=== PATIENT | female | born 1960 | race Caucasian/White ===

== ENCOUNTER 2019-06-03 19:37 | Emergency (ER) | payer BC, OTHER ==
[2019-06-03 19:49] VITALS: BP 131/92; PULSE 96; BMI 30.2
[2019-06-03] MEDS ORDERED: ACETAMINOPHEN 325 MG TABLET (FP) ONE (19:57)
[2019-06-03] MEDS ORDERED: ACETAMINOPHEN 325 MG TABLET (FP) PO ONE (20:04)
[2019-06-03 20:10] LABS: BASO % 0.3 % (0-2.0); EOS % 0.9 % (0-4.5); HEMATOCRIT 42.5 % (32.4-45.2); HEMOGLOBIN 14.1 GM/dl (10.7-15.3); LYMPH % 11.3 % (8-40); MCHC 33.1 g/dl (32.0-36.0); MEAN CELL VOLUME 90.7 fl (80-96); MEAN PLT VOLUME 9.6 fl (7.5-11.1); MONO % 3.9 % (3.8-10.2); NEUT % 83.6 % (42.8-82.8); PLATELET COUNT 187 K/MM3 (134-434); RBC 4.69 M/mm3 (3.60-5.2); WHITE BLOOD COUNT 8.1 K/mm3 (4.0-10.8)
[2019-06-03 20:22] LABS: ALBUMIN 4.1 g/dl (3.4-5.0); BILIRUBIN,TOTAL 0.9 mg/dl (0.2-1); CALCIUM 9.1 mg/dl (8.5-10); CREATININE 0.7 mg/dl (0.55-1.3); POTASSIUM 4.1 mmol/L (3.5-5.1); TOT PROT 7.2 g/dl (6.4-8.2)
[2019-06-03 20:25] VITALS: TEMP 99.2
[2019-06-03] MEDS ORDERED: CEFOXITIN SODIUM 1 GM in DEXTROSE 5%-WATER - 100 ML IVPB ONE (22:18)
--- NOTE | 2019-06-04 06:12 | PDOC ---
Documentation entered by Dimas Brewer SCRIBE, acting as scribe for Geovany Elder MD. Geovany Elder MD: This documentation has been prepared by the Daniella farooq Xhesika, SCRIBE, under my direction and personally reviewed by me in its entirety. I confirm that the documentation accurately reflects all work, treatment, procedures, and medical decision making performed by me. History of Present Illness - General Chief Complaint: Pain Stated Complaint: ABD PAIN History Source: Patient Exam Limitations: No Limitations - History of Present Illness Initial Comments: 06/03/19 19:48 The patient is a 58 year old female, with a significant PMH of Anemia (GERD related), laryngeal reflux disease, gastritis, chronic constipation, and hemorrhoids who presents to the emergency department with 1 day of abdominal pain. The patient states she came back from [place] last night, went to bed and woke up in the middle of the night with LLQ pain that felt like constipation. The patient she took Colace last night and 1 dose of Augmentin this afternoon with minimal relief. The patient states she feels constipated and drank small amounts of fluid.The patient notes she has experienced similar pain in the past where she had a colonoscopy done and it showed diverticulitis. Allergies: metronidazole Surgical surgery: abdominal hysterectomy in 200606/04/19 06:11 Past History - Past Medical History Allergies/Adverse Reactions: Allergies Allergy/AdvReac Type Severity Reaction Status Date / Time metronidazole [From Flagyl] Allergy Verified 06/03/19 19:38 Home Medications: Ambulatory Orders Zolpidem Tartrate [Ambien] 6.5 mg PO HS PRN 02/20/15 Butalb/Acetaminophen/Caffeine [Fioricet 50-300-40 mg Capsule] 1 each PO PRN PRN 05/05/15 Pantoprazole Sodium [Protonix -] 40 mg PO DAILY 06/03/19 Polyethylene Glycol 3350 [Miralax (For Daily Use) -] 17 gm PO DAILY 06/03/19 Sennosides/Docusate Sodium [Senokot-S Tablet] 1 each PO ASDIR 06/03/19 Anemia: Yes (GERD RELATED) GI Disorders: Yes (LARYNGEAL REFLUX DISEASE, GASTRITIS, FUNDIC POLYPS, HEMMORRHOIDS) - Surgical History Abdominal Surgery: Yes - Immunization History Immunization Up to Date: Yes - Suicide/Smoking/Psychosocial Hx Smoking History: Never smoked Have you smoked in the past 12 months: No Hx Alcohol Use: Yes (DAILY) Drug/Substance Use Hx: No Substance Use Type: None Review of Systems - Review of Systems Able to Perform ROS?: Yes Comments:: 06/03/19 19:50 GENERAL/CONSTITUTIONAL: No fever or chills. No weakness. HEAD, EYES, EARS, NOSE AND THROAT: No change in vision. No ear pain or discharge. No sore throat. CARDIOVASCULAR: No chest pain or shortness of breath. RESPIRATORY: No cough, wheezing, or hemoptysis. GASTROINTESTINAL: No nausea, vomiting, diarrhea or constipation. GENITOURINARY: No dysuria, frequency, or change in urination. MUSCULOSKELETAL: (+) abdominal pain. (+) LLQ pain. No joint or muscle swelling or pain. No neck or back pain. SKIN: No rash NEUROLOGIC: No headache, vertigo, loss of consciousness, or change in strength/ sensation. ENDOCRINE: No increased thirst. No abnormal weight change. HEMATOLOGIC/LYMPHATIC: No anemia, easy bleeding, or history of blood clots. ALLERGIC/IMMUNOLOGIC: No hives or skin allergy. *Physical Exam - Vital Signs Last Vital Signs Temp Pulse Resp BP Pulse Ox 99.2 F 96 H 18 131/92 100 06/03/19 19:37 06/03/19 19:37 06/03/19 19:37 06/03/19 19:37 06/03/19 19:37 - Physical Exam Comments: 06/03/19 19:50 GENERAL: Awake, alert, and fully oriented, in no acute distress HEAD: No signs of trauma EYES: PERRLA, EOMI, sclera anicteric, conjunctiva clear ENT: Auricles normal inspection, hearing grossly normal, nares patent, oropharynx clear without exudates. Moist mucosa NECK: Normal ROM, supple, no lymphadenopathy, JVD, or masses LUNGS: Breath sounds equal, clear to auscultation bilaterally. No wheezes, and no crackles HEART: Regular rate and rhythm, normal S1 and S2, no murmurs, rubs or gallops ABDOMEN: (+) LLQ tenderness. Soft, normoactive bowel sounds. No guarding, no rebound. No masses EXTREMITIES: Normal range of motion, no edema. No clubbing or cyanosis. No cords, erythema, or tenderness NEUROLOGICAL: Cranial nerves II through XII grossly intact. Normal speech, normal gait SKIN: Warm, Dry, normal turgor, no rashes or lesions noted. ED Treatment Course - LABORATORY CBC & Chemistry Diagram: 06/03/19 19:50 06/03/19 19:50 - ADDITIONAL ORDERS Additional order review: Laboratory Results 06/03/19 19:50 Sodium 139 Potassium 4.1 Chloride 102 Carbon Dioxide 28 Anion Gap 9 BUN 12.0 Creatinine 0.7 Est GFR (CKD-EPI)AfAm 109.91 Est GFR (CKD-EPI)NonAf 94.84 Random Glucose 106 Calcium 9.1 Total Bilirubin 0.9 AST 22 ALT 23 Alkaline Phosphatase 92 Total Protein 7.2 Albumin 4.1 Lipase 93 06/03/19 19:50 RBC 4.69 MCV 90.7 MCHC 33.1 RDW 12.0 MPV 9.6 Neutrophils % 83.6 H Lymphocytes % 11.3 Monocytes % 3.9 Eosinophils % 0.9 Basophils % 0.3 - RADIOLOGY Radiology Studies Ordered: Category Date Time Status ABDOMEN & PELVIS CT WITH CONTR [CT] Stat CT Scan 06/03/19 19:44 Taken - Medications Given in the ED: ED Medications Discontinued Medications Generic Name Dose Route Start Last Admin Trade Name Freq PRN Reason Stop Dose Admin Acetaminophen 650 mg 06/03/19 20:04 06/03/19 20:00 Tylenol - PO 06/03/19 20:05 650 mg ONCE ONE Administration Cefoxitin Sodium 1 gm/ 100 mls @ 200 mls/hr 06/03/19 22:18 06/03/19 22:48 Dextrose IVPB 06/03/19 22:47 200 mls/hr ONCE ONE Administration Protocol Medical Decision Making - Medical Decision Making 06/04/19 06:12 diverticulitis abx analgesia *DC/Admit/Observation/Transfer Diagnosis at time of Disposition: Diverticulitis - Discharge Dispostion Disposition: HOME Condition at time of disposition: Stable - Referrals - Patient Instructions Printed Discharge Instructions: DI for Diverticulitis - Post Discharge Activity
== END 2019-06-03 23:59 | disposition home or self-care (01) ==
LOC: FER 19:37
DX: K57.92 Diverticulitis of intestine, part unspecified, without perforation or abscess without bleeding (principal); K21.9 Gastro-esophageal reflux disease without esophagitis
CPT/HCPCS: 36415; 74177-TC; 80053; 83690; 85025; 99283-25

== ENCOUNTER 2019-06-04 12:30 | Inpatient (IN) | payer OTHER ==
[2019-06-04] MEDS ORDERED: PIPERACILLIN/TAZOB 4.5 GM 4.5 GM in DEXTROSE 5%-WATER 100 ML IVPB ONE (13:23)
[2019-06-04] MEDS ORDERED: morphine CARPU-JECT 4 MG/1 ML DISP.SYRIN IVPUSH ONE (13:24)
--- NOTE | 2019-06-04 13:37 | PDOC ---
History of Present Illness - General Chief Complaint: Pain, Acute Stated Complaint: FEVER/ ABD PAIN Time Seen by Provider: 06/04/19 13:02 - History of Present Illness Initial Comments: Ms. Jett is a 58F presenting with PMH of anemia, GERD, gastritis, chronic constipation, and hemorrhoids, presenting with left lower abdominal pain that started 2 days ago. She was seen at the [facility] yesterday for the LLQ pain and was diagnosed with diverticulitis. She had a CT done there which showed mid sigmoid diverticulitis. White count was normal yesterday. She reports that her fever yesterday was 100.6 and has increased to 101.5 today. Denies nausea or vomiting. She took 2 doses of augmentin. Used qian and colace for her chronic constipation and now has some diarrhea. Reports some blood when wiping and bloody mucus, but no blood in the stool or blood per rectum. Reports that her pain has increased and is difficulty to control with Tylenol. PMH: GERD, chronic constipation, anemia, hemorrhoids SurgHx: total hysterectomy, total right knee replacement Past History - Past Medical History Allergies/Adverse Reactions: Allergies Allergy/AdvReac Type Severity Reaction Status Date / Time metronidazole [From Flagyl] Allergy Verified 06/03/19 19:38 Home Medications: Ambulatory Orders Zolpidem Tartrate [Ambien] 6.5 mg PO HS PRN 02/20/15 Butalb/Acetaminophen/Caffeine [Fioricet 50-300-40 mg Capsule] 1 each PO PRN PRN 05/05/15 Pantoprazole Sodium [Protonix -] 40 mg PO DAILY 06/03/19 Polyethylene Glycol 3350 [Miralax (For Daily Use) -] 17 gm PO DAILY 06/03/19 Sennosides/Docusate Sodium [Senokot-S Tablet] 1 each PO ASDIR 06/03/19 Anemia: Yes (GERD RELATED) COPD: No GI Disorders: Yes (LARYNGEAL REFLUX DISEASE, GASTRITIS, FUNDIC POLYPS, HEMMORRHOIDS) - Surgical History Abdominal Surgery: Yes - Immunization History Immunization Up to Date: Yes - Suicide/Smoking/Psychosocial Hx Smoking History: Never smoked Have you smoked in the past 12 months: No Information on smoking cessation initiated: No Hx Alcohol Use: No Drug/Substance Use Hx: No Substance Use Type: None Review of Systems - Review of Systems Able to Perform ROS?: Yes Constitutional: Yes: See HPI, Fever, Loss of Appetite. No: Chills, Diaphoresis , Malaise, Night Sweats, Weakness HEENTM: Yes: See HPI. No: Throat Swelling, Mouth Pain, Difficulty Swallowing Respiratory: Yes: See HPI. No: Cough, Orthopnea, Shortness of Breath, Hemoptysis Cardiac (ROS): Yes: See HPI. No: Chest Pain, Edema, Lightheadedness, Palpitations ABD/GI: Yes: See HPI, Abd. Pain w/ defecation, Blood Streaked Bowels, Constipated (chronic), Diarrhea (today), Poor Appetite, Poor Fluid Intake, Abdominal cramping. No: Abdominal Distended, Difficulty Swallowing, Nausea, Rectal Bleeding, Vomiting, Indigestion, Tarry Stools : Yes: See HPI. No: Burning, Dysuria, Frequency, Flank Pain, Hematuria, Pain , Urgency Musculoskeletal: Yes: See HPI, Back Pain. No: Gout, Joint Pain, Joint Swelling , Muscle Pain, Muscle Weakness, Joint Stiffness Integumentary: Yes: See HPI. No: Bruising, Change in Color, Dryness, Erythema Neurological: Yes: See HPI. No: Headache, Numbness, Dizziness *Physical Exam - Vital Signs Last Vital Signs Temp Pulse Resp BP Pulse Ox 98.2 F 116 H 20 140/73 99 06/04/19 12:40 06/04/19 12:40 06/04/19 12:40 06/04/19 12:40 06/04/19 12:40 - Physical Exam General Appearance: Yes: Nourished, Appropriately Dressed. No: Apparent Distress HEENT: positive: EOMI, ARVIND, Normal Voice, Pharynx Normal, Other (moist mucous membranes ) Neck: positive: Trachea midline, Supple. negative: Tender, Rigid Respiratory/Chest: positive: Lungs Clear, Normal Breath Sounds. negative: Chest Tender, Respiratory Distress, Accessory Muscle Use Cardiovascular: positive: Regular Rhythm, Regular Rate Vascular Pulses: Dorsalis-Pedis (R): 2+, Doralis-Pedis (L): 2+ Gastrointestinal/Abdominal: positive: Tender (bilateral lower quadrants, left worse than right ), Flat, Soft. negative: Organomegaly, Pulsatile Mass, Distended, Guarding, Rebound Musculoskeletal: positive: Normal Inspection. 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 She had a CT done yesterday which showed mid sigmoid diverticulitis. Fever increased from 100.6 to 101.5. Pain difficult to control with Tylenol. Her WBC yesterday was within normal limits. Took two doses of augmentin yesterday. Today, we will obtain repeat CBC, CMP, UA, EKG. Will give Zosyn IV 4.5 mg. Pain control with 4 mg Morphine and 2 mg Zofran. Plan to admit. 06/04/19 15:12 Pain well controlled. No RBC or leukocyte esterase on UA. WBC increased from yesterday but still within normal limits. Will admit to the hospitalist service with GI consult. *DC/Admit/Observation/Transfer Diagnosis at time of Disposition: Diverticulitis Abdominal pain Qualifiers: Abdominal location: left lower quadrant Qualified Code(s): R10.32 - Left lower quadrant pain - Discharge Dispostion Condition at time of disposition: Stable Decision to Admit order: Yes - Referrals Referrals: Nikita Jett MD [Primary Care Provider] - - Patient Instructions - Post Discharge Activity
[2019-06-04] MEDS ORDERED: morphine SULFATE 4 MG/ML VIAL ONE (13:38)
[2019-06-04] MEDS ORDERED: ONDANSETRON 4 MG/2 ML VIAL ONE (13:39)
[2019-06-04] MEDS ORDERED: PIPERACILLIN/TAZOB 4.5 GM 4.5 GM/100 ML BAG IVPB ONE (13:39)
[2019-06-04] MEDS ORDERED: ACETAMINOPHEN 1000 MG/100 ML VIAL (NON FORMULARY) IVPB ONE (13:45)
[2019-06-04] MEDS ORDERED: SODIUM CHLORIDE 1,000 ML IV STA (13:45)
[2019-06-04] MEDS: ONDANSETRON 4 MG/2 ML VIAL IVPUSH PRN ×2 (13:56→17:51)
[2019-06-04 14:03] LABS: HEMATOCRIT 41.5 % (32.4-45.2); HEMOGLOBIN 14.2 GM/dL (10.7-15.3); MCH 30.6 pg (25.7-33.7); MEAN CELL VOLUME 89.1 fl (80-96); RBC 4.65 M/mm3 (3.60-5.2); WHITE BLOOD COUNT 9.8 K/mm3 (4.0-10.0)
[2019-06-04 14:04] LABS: BASO % 0.5 % (0-2.0); EOS % 0.5 % (0-4.5); LYMPH % 7.9 % (8-40); MCHC 34.3 g/dl (32.0-36.0); NEUT % 85.1 % (42.8-82.8); PLATELET COUNT 165 K/MM3 (134-434); RDW 13.1 % (11.6-15.6)
[2019-06-04] MEDS ORDERED: ACETAMINOPHEN INJECTION 100 ML IVPB ONE (14:13)
--- NOTE | 2019-06-04 14:31 | PDOC ---
Documentation entered by Vicki Moreira SCRIBE, acting as scribe for Paul Woodruff MD. Paul Woodruff MD: This documentation has been prepared by the scribe, Vicki Moreira SCRIBE, under my direction and personally reviewed by me in its entirety. I confirm that the documentation accurately reflects all work, treatment, procedures, and medical decision making performed by me. Attending Attestation - Resident Resident Name: Salvador Rasmussen - ED Attending Attestation I have performed the following: I have examined & evaluated the patient, The case was reviewed & discussed with the resident, I agree w/resident's findings & plan, Exceptions are as noted - HPI HPI: 06/04/19 13:54 The patient is a 58-year-old female, with a past history of anemia, GERD, gastritis, chronic constipation, and hemorrhoids, who presents to the ED with 2 days of LLQ abdominal pain and fever. The patient was seen at [facility] yesterday for her symptoms and had a CT done that showed mid sigmoid diverticulitis. She reports that her fever yesterday was 100.6 and is now 101.5. She used qian and colace for her chronic constipation and is now experiencing multiple episodes of diarrhea. The patient reports noting some blood when wiping and bloody mucus, but denies any blood in her stool. The patient denies any nausea or vomiting. Denies any chest pain, palpitations, or shortness of breath. Denies any urinary symptoms. Denies any weakness, lightheadedness, or changes in strength or sensation. Allergies: Metronidazole. Surgical History: Total hysterectomy, Total right knee replacement. PCP: Dr. Nikita Jett - Physicial Exam PE: 06/04/19 14:31 general: no acute distress abd: soft, moderate LLQ ttp, no rebound/guarding card: tachycardic, no mumres - Medical Decision Making 06/04/19 14:32 failed outpatient mgmt of diverticulitis will admit for further management pt noted tachycardic, likely secondary to pain/dehdration will fluid resusitation Heart Score/ECG Review - ECG Impressions Comment:: 06/04/19 15:44 Twelve-lead EKG was performed and reviewed by me. There is normal sinus rhythm with a normal rate. rate of [address] changes suggestive of acute ischemia
[2019-06-04 14:33] LABS: PH,URINE 5.5 (5.0-8.0); URINE APPEARANCE CLEAR; URINE BILIRUBIN NEGATIVE (NEGATIVE); URINE COLOR YELLOW; URINE GLUCOSE (UA) NEGATIVE (NEGATIVE); URINE KETONE TRACE (NEGATIVE); URINE LEUK ESTERASE NEGATIVE (NEGATIVE); URINE NITRITE NEGATIVE (NEGATIVE); URINE PROTEIN NEGATIVE (NEGATIVE); URINE UROBILINOGEN 0.2 mg/dL (0.2-1.0)
[2019-06-04 14:48] LABS: BLOOD UREA NITROGEN 6.6 mg/dL (7-18); CREATININE 0.8 mg/dL (0.55-1.3); POTASSIUM 3.7 mmol/L (3.5-5.1)
[2019-06-04 14:49] LABS: BILIRUBIN,TOTAL 0.7 mg/dL (0.2-1); TOT PROT 7.2 g/dl (6.4-8.2)
--- NOTE | 2019-06-04 15:20 | HP ---
CHIEF COMPLAINT: lower abdominal pain, fevers PCP: Dr. Jett GI: Dr. Wade HISTORY OF PRESENT ILLNESS: 58 yof with PMhx of GERD, chronic constipation, anemia, haemorrhoids was in her [facility] till 2 days ago when started noticing lower abdominal pain, was constant overnight, took a dose of augmentin, went to [facility] ER yesterday, where had a CT A /P showing proximal and mid sigmoid diverticulitis with pericolonic stranding and close follow up for small abscess. She received a dose of Cefoxitin and was sent home. Today given fevers upto 101.5, came to ED Still c/o lower abdominal pain improved with morphine in the ED. NO nausea, vomiting. Had an episode of non bloody diarrhea today. Also reports h./o haemorrhoids with occasional blood on tissues. Has chronic constipation needing laxatives.Last colonoscopy with Dr. Wade in 2014. 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 Neg for colon/GI malignancy Allergies metronidazole [From Flagyl] Allergy (Verified 06/03/19 19:38) HOME MEDICATIONS: Home Medications Medication Instructions Recorded Zolpidem Tartrate [Ambien] 6.5 mg PO HS PRN 02/20/15 Butalb/Acetaminophen/Caffeine 1 each PO PRN PRN 05/05/15 [Fioricet 50-300-40 mg Capsule] Pantoprazole Sodium [Protonix -] 40 mg PO DAILY 06/03/19 Polyethylene Glycol 3350 [Miralax 17 gm PO DAILY PRN 06/03/19 (For Daily Use) -] Sennosides/Docusate Sodium 1 each PO HS PRN 06/03/19 [Senokot-S Tablet] REVIEW OF SYSTEMS 12 point ROS done, neg except HPI PHYSICAL EXAMINATION Vital Signs - 24 hr 06/04/19 12:40 Temperature 98.2 F Pulse Rate 116 H Respiratory 20 Rate Blood Pressure 140/73 O2 Sat by Pulse 99 Oximetry (%) Intake & Output 06/01/19 06/02/19 06/03/19 06/04/19 23:59 23:59 23:59 23:59 Weight 192 lb GENERAL: Awake, alert, and fully oriented, in no acute distress. HEAD: Normal with no signs of trauma. EYES: Pupils equal, round and reactive to light, extraocular movements intact, sclera anicteric, conjunctiva clear. No lid lag. EARS, NOSE, THROAT: Ears normal, nares patent, oropharynx clear without exudates. Moist mucous membranes. NECK: Normal range of motion, supple, no JVD noted LUNGS: Breath sounds equal, clear to auscultation bilaterally. No wheezes, and no crackles. No accessory muscle use. HEART: Regular rate and rhythm, normal S1 and S2 ABDOMEN: soft, obese, tenderness in ramon-umbilical region and lower abdomne, most prominent in left infra umbilical region, no voluntary or involuntary guarding or rigidity, pos bowel sounds MUSCULOSKELETAL: Normal range of motion at all joints. No bony deformities or tenderness. No CVA tenderness. UPPER EXTREMITIES: 2+ pulses, warm, well-perfused. No cyanosis. No clubbing. No peripheral edema. LOWER EXTREMITIES: 2+ pulses, warm, well-perfused. No calf tenderness. No peripheral edema. NEUROLOGICAL: AAOx3, Cranial nerves II-XII intact. Normal speech. Normal gait. PSYCHIATRIC: Cooperative. Good eye contact. Appropriate mood and affect. SKIN: Warm, dry, normal turgor, no rashes or lesions noted, normal capillary refill. Laboratory Results - last 24 hr 06/04/19 06/04/19 06/04/19 13:23 13:54 13:54 WBC 9.8 RBC 4.65 Hgb 14.2 Hct 41.5 MCV 89.1 MCH 30.6 MCHC 34.3 RDW 13.1 Plt Count 165 MPV 9.0 Absolute Neuts (auto) 8.4 H Neutrophils % 85.1 H D Lymphocytes % 7.9 L D Monocytes % 6.0 Eosinophils % 0.5 Basophils % 0.5 Nucleated RBC % 0 Sodium 138 Potassium 3.7 Chloride 103 Carbon Dioxide 29 Anion Gap 6 L BUN 6.6 L Creatinine 0.8 Est GFR (CKD-EPI)AfAm 93.53 Est GFR (CKD-EPI)NonAf 80.70 Random Glucose 112 H Calcium 9.0 Total Bilirubin 0.7 AST 14 L ALT 25 Alkaline Phosphatase 103 Total Protein 7.2 Albumin 4.0 Urine Color Yellow Urine Appearance Clear Urine pH 5.5 D Ur Specific [place] 1.014 Urine Protein Negative Urine Glucose (UA) Negative Urine Ketones Trace H Urine Blood Negative Urine Nitrite Negative Urine Bilirubin Negative Urine Urobilinogen 0.[address] A/P From 06/03/2019 results reviewed EKG Sinus tach 110s, no acute ST-T changes, current HR 83 ASSESSMENT/PLAN: 58 yof with PMhx of GERD, chronic constipation, anemia, haemorrhoids admitted with Acute proximal/Mid sigmoid diverticulitis r/o abscess -Acute proximal/mid Sigmoid diverticulitis with early sepsis, r/o abscess -Chronic constipation -GERD -Anemia -Haemorrhoids Plan: ID/GI consulted, case discussed with Dr. rubio/Dr. Wade. Surgery consult Dr. Alcantara (per Dr. Jett's request) Zosyn, follow up blood cx. NPO for now IVF, pain control morphine, serial abdominal exams. Low threshold to re-image if worsening symptoms or fails to improve. GIPPX Protonix DVTPPX lovenox Dispo admit to inpatient medsurg. Plan discussed with patient in detail, all questions answered. Care co-ordinated with Dr. Jett, ID and GI. Total admit time spent 65 min. Visit type - Emergency Visit Emergency Visit: Yes ED Registration Date: 06/04/19 Care time: The patient presented to the Emergency Department on the above date and was hospitalized for further evaluation of their emergent condition. - New Patient This patient is new to me today: Yes Date on this admission: 06/04/19 - Critical Care Critical Care patient: No
[2019-06-04] MEDS ORDERED: ACETAMINOPHEN 1000 MG/100 ML VIAL (NON FORMULARY) IVPB PRN ×2 (16:06→19:04)
--- NOTE | 2019-06-04 16:23 | CON.ID ---
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, and constipation- she had chronic functional constipation she had fever to 100.4 on Tuesday AM with continued abdominal pain, she started Augmentin for presumed diverticulitis the pain continued and she went to [facility] night for evaluation CT scan abd/pelvis with acute diverticulitis- no microperforation noted she went home, pain continued and she had chills and fever to 101.5 +diarrhea (she took colace, senna and miralax on the weekend) no vomiting colonoscopoy in 2014 with diverticulosis flagyl - rash - History Source History Provided By: Patient Limitations to Obtaining History: No Limitations - Past Surgical History Past Surgical History: Yes: Hysterectomy (partial, 2006), Joint Replacement ( left TKR September 2018) - Alcohol/Substance Use Hx Alcohol Use: Yes (social) History of Substance Use: reports: None - Smoking History Smoking history: Never smoked Have you smoked in the past 12 months: No - Social History Usual Living Arrangement: With Spouse ADL: Independent 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 History of Recent Travel: Yes ([place], [place]) Home Medications - Allergies Allergies/Adverse Reactions: Allergies Allergy/AdvReac Type Severity Reaction Status Date / Time metronidazole [From Flagyl] Allergy Verified 06/03/19 19:38 - Home Medications Home Medications: Ambulatory Orders Zolpidem Tartrate [Ambien] 6.5 mg PO HS PRN 02/20/15 Butalb/Acetaminophen/Caffeine [Fioricet 50-300-40 mg Capsule] 1 each PO PRN PRN 05/05/15 Pantoprazole Sodium [Protonix -] 40 mg PO DAILY 06/03/19 Polyethylene Glycol 3350 [Miralax (For Daily Use) -] 17 gm PO DAILY PRN Sennosides/Docusate Sodium [Senokot-S Tablet] 1 each PO HS PRN 06/03/19 Family Disease History - Family Disease History Family History: Denies Review of Systems - Review of Systems Constitutional: reports: Chills, Fever Eyes: reports: No Symptoms HENT: reports: No Symptoms. denies: Difficult Swallowing Neck: reports: No Symptoms Cardiovascular: reports: No Symptoms. denies: Chest Pain, Edema Respiratory: reports: No Symptoms. denies: Cough, SOB Gastrointestinal: reports: Abdominal Pain, Constipation Genitourinary: reports: No Symptoms Musculoskeletal: reports: No Symptoms Integumentary: reports: No Symptoms Neurological: reports: No Symptoms Physical Exam Vital Signs: Vital Signs Temperature 98.5 F 06/04/19 15:55 Pulse Rate 93 H 06/04/19 15:55 Respiratory Rate 16 06/04/19 15:55 Blood Pressure 111/75 06/04/19 15:55 O2 Sat by Pulse Oximetry (%) 100 06/04/19 15:55 Constitutional: Yes: Well Nourished, No Distress, Calm Eyes: Yes: Conjunctiva Clear, EOM Intact HENT: Yes: Atraumatic, Normocephalic Neck: Yes: Supple, Trachea Midline. No: Lymphadenopathy Cardiovascular: Yes: Regular Rate and Rhythm Respiratory: Yes: Regular, CTA Bilaterally Gastrointestinal: Yes: Normal Bowel Sounds, Soft, Tenderness (LLQ- no rebound), Tenderness, Epigastrium (mild) ...Rectal Exam: Yes: Deferred Renal/: No: CVA Tenderness - Left, CVA Tenderness - Right, Childs Present Musculoskeletal: Yes: WNL Extremities: Yes: WNL Edema: No Neurological: Yes: Alert, Oriented Labs: CBC, BMP 06/04/19 13:54 06/04/19 13:23 blood cultures pending Imaging - Results Cat Scan: Report Reviewed, Image Reviewed Problem List - Problems (1) Diverticulitis Code(s): K57.92 - DVTRCLI OF INTEST, PART UNSP, W/O PERF OR ABSCESS W/O BLEED (2) Metronidazole adverse reaction Code(s): T37.8X5A - ADVERSE EFFECT OF SYSTEMIC ANTI-INFECT/PARASIT, INIT Assessment/Plan diverticulits- continue zosyn given metronidazole allergy check esr/crp GI and surgery evaluation pending
[2019-06-04] MEDS: MORPHINE SULFATE 2 MG/ML VIAL IVPUSH PRN (16:52)
[2019-06-04] MEDS: DEXTROSE 5%-NORMAL SALINE 1,000 ML IV SCH (17:03)
[2019-06-04] MEDS ORDERED: DEXTROSE 5%-WATER 100 ML IVPB ONE (17:19)
[2019-06-04] MEDS ORDERED: PIPERACILLIN/TAZOBACTAM 4.5 GM VIAL IVPB ONE (17:19)
[2019-06-04] MEDS: PIPERACILLIN/TAZOB 4.5 GM 4.5 GM in DEXTROSE 5%-WATER 100 ML IVPB SCH (17:23)
[2019-06-04 17:40] VITALS: BMI 32.8
[2019-06-04] MEDS ORDERED: PIPERACILLIN/TAZOB 4.5 GM 4.5 GM in DEXTROSE 5%-WATER 100 ML IVPB SCH (18:00)
--- NOTE | 2019-06-04 18:26 | CONS ---
DATE OF CONSULTATION: 06/04/2019 REASON FOR CONSULTATION: Uncomplicated diverticulitis. This is an inpatient consultation at the request of the emergency room physician. 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 She went to the [facility] yesterday, where she had a CAT scan of her abdomen and pelvis, which showed uncomplicated diverticulitis with a small amount of fluid next to the colon and possible early abscess formation. She was discharged home with Augmentin antibiotic. However, she developed fever at home and worsening pain and, therefore, returned to the [facility] Emergency Room and was admitted for diverticulitis. She was started on Zosyn antibiotic while here and her pain is currently much improved and she has had no recorded fever in the [employer] system. She denies nausea, denies vomiting. She does have an appetite. She is passing gas. PAST MEDICAL HISTORY: Significant for headaches, gastroesophageal reflux disease, and sleep disorder. PAST SURGICAL HISTORY: Includes a hysterectomy and a right total knee replacement. SOCIAL HISTORY: Positive for occasional alcohol consumption, negative for tobacco. FAMILY HISTORY: Significant for a father with kidney cancer and a mother with breast cancer. HOME MEDICATIONS: Include as-needed Fioricet, as-needed Protonix, and as-needed Ambien. Her last colonoscopy was in [address] Wade, and all that was noted per the patient and her was diverticula. ALLERGIES: FLAGYL. REVIEW OF SYSTEMS: General: Denies fatigue or malaise. Cardiac: Denies chest pain or palpitations. Respiratory: Denies shortness of breath or wheeze. Gastrointestinal: As stated in the HPI. Genitourinary: Denies dysuria. Musculoskeletal: Denies joint pain. Psychiatric: Denies anxiety, depression, hearing voices. PHYSICAL EXAMINATION: General: This is a well-developed, well-nourished, 58-year-old female in no distress. Vital Signs: She is afebrile. Her vital signs are stable. HEENT: Her head is normocephalic. Her sclerae are anicteric. Neck: Supple. Chest: Clear. Abdomen: Soft. She has mild fullness and tenderness in the left lower quadrant and left lower mid abdomen. She has rebound with mild guarding. She has a well-healed Pfannenstiel incision. Extremities: She has no edema on her extremities. REVIEW OF LABORATORY: Her white blood cell count is 9.8 with 85% shift. Her chemistries are unremarkable. Her urinalysis is negative for leukocyte esterase, nitrites, and blood. REVIEW OF IMAGING: Her CAT scan is as in HPI. ASSESSMENT: This is a 58-year-old female admitted for left lower quadrant abdominal pain, fever, a left shift, and CAT scan evidence yesterday of uncomplicated diverticulitis. Clinically, this is the first episode of uncomplicated diverticulitis. However, as always, it is impossible to rule out malignancy/neoplasm as well. Her last colonoscopy was 4 years ago, which makes this unlikely, but not impossible. Patient wishes to attempt conservative management. She and her understand that any surgery in the acute setting would require a temporary colostomy. She is currently nontoxic with localized symptoms. At this point, I agree with Zosyn antibiotic. This will cover E. coli as well as gram-negative and anaerobic bacteria. Patient should remain n.p.o. until her tenderness resolves. I suspect she would benefit from a full 5-day course of IV antibiotic in the hospital. If she rapidly improves, which I expect she will, then she can likely be discharged with outpatient colonoscopy in approximately 6 weeks. If her tenderness remains and she continues to have fever, then would recommend repeat CAT scan on , which will be 5 days since her last CAT scan, to evaluate for formation of an abscess which may be addressed by Interventional Radiology. Obviously, if she deteriorates, she will likely need to undergo emergent surgery. At this point, since this is her first episode of diverticulitis and based on the initial CAT scan is uncomplicated, I would not recommend elective resection as the risks of this would likely outweigh benefit. At this point, patient will continue with medical management with hopeful plans for outpatient colonoscopy. I will be available to re-evaluate if the patient appears to deteriorate for possible emergency surgery, and if she ends up requiring repeat imaging which shows that this is complicated diverticulitis, then she can be also evaluated to consider for elective resection. DO VANNESSA DOWNS/[id number]
[2019-06-04] MEDS ORDERED: ACETAMINOPHEN/CAFFEINE/BUTALBITAL 1 TAB PO PRN (19:05)
--- NOTE | 2019-06-04 21:55 | CON.GI ---
Consult Consult Specialty:: Gastroenterology Referred by:: Dr García Reason for Consultation:: sigmoid diverticulitis - History of Present Illness Chief Complaint: Pain, constipation and chills with fever to 101.5 History of Present Illness: 58F awoke with severe lower abdominal pain in early AM of 06/03. She started Augmentin about 2AM. When her pain worsened she went to the [facility] ER last night where she was given a dose of Cefoxitin after CT confirmed sigmoid diverticulitis without an overt abscess and was discharged. She returned today as her pain got worse and she developed a fever of 101.5. She has not had a good BM since the pain began but did pass some liquidy stool after having had the CT contrast last night. She did stray from fiber in her diet over the May 31 holiday but denies having strained to defecate at anytime. She has chronic constipation and developed an aversion to Miralax after having an episode of incontinence. She was introduced to senna and colace after her right TKA in 10/15 and has been relying on these. She had an EGD and a colonoscopy with ct on 05/05/15. The EGD revealed a medium sized HH with nonerosive reflux ad mild duodenitis. Colonoscopy revealed mild diverticulosis universally but no polyps. 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 Pulmonary: Yes: Asthma (GERD related) Gastrointestinal: Yes: Diverticulosis, GERD, Hiatal Hernia, Other (duodenitis) - Past Surgical History Past Surgical History: Yes: Hysterectomy ([facility] 2006 fo fibroid with ovaries intact), Joint Replacement (right TKR September 2018 @ [facility]) - Alcohol/Substance Use Hx Alcohol Use: Yes (social) History of Substance Use: reports: None - Smoking History Smoking history: Never smoked Have you smoked in the past 12 months: No - Social History Usual Living Arrangement: With Spouse ADL: Independent Occupation: [employer] History of Recent Travel: Yes ([place], [place]) Home Medications - Allergies Allergies/Adverse Reactions: Allergies Allergy/AdvReac Type Severity Reaction Status Date / Time metronidazole [From Flagyl] Allergy Verified 06/03/19 19:38 - Home Medications Home Medications: Ambulatory Orders Zolpidem Tartrate [Ambien] 6.5 mg PO HS PRN 02/20/15 Butalb/Acetaminophen/Caffeine [Fioricet 50-300-40 mg Capsule] 1 each PO PRN PRN 05/05/15 Pantoprazole Sodium [Protonix -] 40 mg PO DAILY PRN 06/03/19 Polyethylene Glycol 3350 [Miralax (For Daily Use) -] 17 gm PO DAILY PRN Sennosides/Docusate Sodium [Senokot-S Tablet] 1 each PO HS PRN 06/03/19 Family Disease History - Family Disease History Family Disease History: Diabetes: Father ( of lung ca 79, had kidney ca), Heart Disease: Father, CA: Father, Mother ( breast cancer in her 50s), Other : Sister (lymphacytic colitis) Other Family History: Pat uncle had melanoma,. Mat uncle had prostate cancer Review of Systems - Review of Systems Constitutional: reports: Chills, Fever Eyes: reports: No Symptoms HENT: reports: No Symptoms Neck: reports: No Symptoms Cardiovascular: reports: No Symptoms Respiratory: reports: No Symptoms Gastrointestinal: reports: Abdominal Pain, Constipation Genitourinary: reports: No Symptoms Musculoskeletal: reports: Back Pain Neurological: reports: Headache Physical Exam-GI Vital Signs: Vital Signs Temperature 99.3 F 06/04/19 20:57 Pulse Rate 20 L 06/04/19 20:57 Respiratory Rate 81 H 06/04/19 20:57 Blood Pressure 126/57 L 06/04/19 20:57 O2 Sat by Pulse Oximetry (%) 100 06/04/19 17:32 CBC,CMP WBC 9.8 K/mm3 (4.0-10.0) 06/04/19 13:54 RBC 4.65 M/mm3 (3.60-5.2) 06/04/19 13:54 Hgb 14.2 GM/dL (10.7-15.3) 06/04/19 13:54 Hct 41.5 % (32.4-45.2) 06/04/19 13:54 MCV 89.1 fl (80-96) 06/04/19 13:54 MCH 30.6 pg (25.7-33.7) 06/04/19 13:54 MCHC 34.3 g/dl (32.0-36.0) 06/04/19 13:54 RDW 13.1 % (11.6-15.6) 06/04/19 13:54 Plt Count 165 K/MM3 (134-434) 06/04/19 13:54 MPV 9.0 fl (7.5-11.1) 06/04/19 13:54 Absolute Neuts (auto) 8.4 K/mm3 (1.5-8.0) H 06/04/19 13:54 Neutrophils % 85.1 % (42.8-82.8) H D 06/04/19 13:54 Lymphocytes % 7.9 % (8-40) L D 06/04/19 13:54 Monocytes % 6.0 % (3.8-10.2) 06/04/19 13:54 Eosinophils % 0.5 % (0-4.5) 06/04/19 13:54 Basophils % 0.5 % (0-2.0) 06/04/19 13:54 Nucleated RBC % 0 % (0-0) 06/04/19 13:54 Sodium 138 mmol/L (136-145) 06/04/19 13:23 Potassium 3.7 mmol/L (3.5-5.1) 06/04/19 13:23 Chloride 103 mmol/L (98-107) 06/04/19 13:23 Carbon Dioxide 29 mmol/L (21-32) 06/04/19 13:23 Anion Gap 6 MMOL/L (8-16) L 06/04/19 13:23 BUN 6.6 mg/dL (7-18) L 06/04/19 13:23 Creatinine 0.8 mg/dL (0.55-1.3) 06/04/19 13:23 Est GFR (CKD-EPI)AfAm 93.53 06/04/19 13:23 Est GFR (CKD-EPI)NonAf 80.70 06/04/19 13:23 Random Glucose 112 mg/dL (74-106) H 06/04/19 13:23 Calcium 9.0 mg/dL (8.5-10.1) 06/04/19 13:23 Total Bilirubin 0.7 mg/dL (0.2-1) 06/04/19 13:23 AST 14 U/L (15-37) L 06/04/19 13:23 ALT 25 U/L (13-61) 06/04/19 13:23 Alkaline Phosphatase 103 U/L (45-117) 06/04/19 13:23 Total Protein 7.2 g/dl (6.4-8.2) 06/04/19 13:23 Albumin 4.0 g/dl (3.4-5.0) 06/04/19 13:23 Current Medications Generic Name Dose Route Start Last Admin Trade Name Manoloq PRN Reason Stop Dose Admin Acetaminophen 500 mg 06/04/19 19:04 06/04/19 21:02 Ofirmev Injection - IVPB 500 mg Q6H PRN Administration PAIN LEVEL 4 - 6 Acetaminophen/Butalbital/Caffeine 1 tablet 06/04/19 19:05 06/04/19 19:19 Fioricet - PO 1 tablet DAILY PRN Administration HEADACHE Enoxaparin Sodium 40 mg 06/06/19 10:00 Lovenox - SQ DAILY RAHEEL Dextrose/Sodium Chloride 1,000 mls @ 125 mls/hr 06/04/19 16:15 06/04/19 17:03 D5-Ns - IV 125 mls/hr ASDIR RAHEEL Administration Piperacillin Sod/Tazobactam 100 mls @ 200 mls/hr 06/04/19 18:00 06/04/19 17: 23 Sod 4.5 gm/ Dextrose IVPB 200 mls/hr Q8H-IV RAHEEL Administration Protocol Morphine Sulfate 1 mg 06/04/19 16:02 06/04/19 16:52 Morphine Sulfate IVPUSH 1 mg Q4H PRN Administration PAIN LEVEL 6-10 Ondansetron HCl 4 mg 06/04/19 13:26 06/04/19 17:51 Zofran Injection IVPUSH 4 mg Q4H PRN Administration NAUSEA AND/OR VOMITING Pantoprazole Sodium 40 mg 06/05/19 10:00 Protonix Iv IVPUSH DAILY RAHEEL Zolpidem Tartrate 10 mg 06/04/19 19:03 Ambien - PO HS PRN INSOMNIA Constitutional: Yes: Anxious Eyes: Yes: Conjunctiva Clear HENT: Yes: Atraumatic Neck: Yes: Supple Cardiovascular: Yes: Regular Rate and Rhythm Respiratory: Yes: CTA Bilaterally Gastrointestinal Inspection: Yes: Scars (healed Pfannensteil incision) ...Auscultate: Yes: Hypoactive Bowel Sounds ...Palpate: Yes: Tenderness (LLQ with guarding but no rebound) ...Rectal Exam: Yes: Deferred Edema: No Peripheral Pulses WNL: Yes Neurological: Yes: Alert, Oriented Labs: CBC, BMP 06/04/19 13:54 06/04/19 13:23 Imaging - Results Cat Scan: Report Reviewed ( Final Report CT ABDOMEN & PELVIS CT WITH CONTR Show Printer-Friendly Version with Image (1 of 1) Show Printer- Friendly Version without images Patient Name: Ana García : Nov-1960 ID: [id number] Study Date: 03-Jun-2019 21:49 Steger Pavili Name: ANA GARCÍA DEPARTMENT OF RADIOLOGY Phys: Geovany Elder MD : [id number] Age: 58 Sex: F [facility] Acct: [id number] Loc: [address] Exam Date: 06/03/19 Status: DEP ER Scott [place]oTIMA [id number] Unit Number: [id number] EXAM#: TYPE/EXAM: RESULT: [id number] CT/ ABDOMEN PELVIS CT WITH CONTR Lower abdominal pain. CT scan of the abdomen and pelvis following oral and intravenous contrast. Coronal and sagittal reformatted images were obtained 99 cc of Omnipaque 350 was intravenously injected Comparison: CT scan of the abdomen pelvis dated 02/20 In the included lower lung, a juxtapleural tiny calcified nodule is present measuring 3 mm that was seen on prior CT scan of the abdomen and pelvis dated 10/29/2014 compatible with a granuloma. Normal size heart. The stomach is adequately distended without wall thickening. Evaluation of the liver, spleen pancreas, gallbladder, both adrenal glands and appears unremarkable There is no evidence of small bowel obstruction. Normal- appearing terminal ileum and appendix. Normal stool burden in the colon. There are multiple diverticula in the proximal and mid sigmoid colon with significant thickening of its wall and stranding of the pericolonic fat/ mesentery as well as a small amount of fluid in the left hemipelvis consistent with acute diverticulitis. No gross extraluminal air is identified. Partially distended urinary bladder without wall thickening Atrophic postmenopausal uterus versus partial hysterectomy. Please correlate clinically. No free air is identified. Normal size and enhancement of the abdominal aorta down through its bifurcation. No enlarged lymph nodes are identified and pelvis. T11-T12 mild degenerative disc disease with slightly prominent anterior spondylosis. L4-L5 mild degenerative disease with vacuum phenomena. L5-S1 minimal central disc bulge without nerve root impingement IMPRESSION: Findings consistent with diverticulitis involving the proximal and mid sigmoid colon with stranding of the pericolonic fat and a small amount of fluid seen in the left hemipelvis for which a follow-up is needed to rule out a small abscess. No extraluminal air is identified. A preliminary report was forwarded by the [employer] service, [employer] Reported By: Daylin Kumar MD [id number] Geovany Elder Technologist: Markie Hankins Transcribed Date/Time: 06/04/19 1321 Complex Manager: Daylin Kumar Printed Date/Time: By: Signed by: Daylin Kumar Signed on: 04-Jun-2019 13:21) Problem List - Problems (1) Diverticulitis of sigmoid colon Assessment/Plan: First episode of sigmoid diverticulitis uncomplicated at this point with Flagyl allergy. Zosyn provides adequate coverage coverage. Code(s): K57.32 - DVTRCLI OF LG INT W/O PERFORATION OR ABSCESS W/O BLEEDING (2) Migraine Code(s): G43.909 - MIGRAINE, UNSP, NOT INTRACTABLE, WITHOUT STATUS MIGRAINOSUS (3) Hiatal hernia with GERD Code(s): K21.9 - GASTRO-ESOPHAGEAL REFLUX DISEASE WITHOUT ESOPHAGITIS; K44.9 - DIAPHRAGMATIC HERNIA WITHOUT OBSTRUCTION OR GANGRENE (4) Knee joint replacement status Code(s): Z96.659 - PRESENCE OF UNSPECIFIED ARTIFICIAL KNEE JOINT (6) Abdominal pain Code(s): R10.9 - UNSPECIFIED ABDOMINAL PAIN Qualifiers: Abdominal location: left lower quadrant Qualified Code(s): R10.32 - Left lower quadrant pain Assessment/Plan Impression: - Sigmoid diverticulitis on Zosyn. Cultures are pending - Personal h/o GERD and chronic constipation Plan: -- NPO for now -- Zosyn -- Narcotic analgesia prn only -- Await cultures -- Repeat CT if needed -- Surgery already on board
[2019-06-04] MEDS: ZOLPIDEM TARTRATE 5 MG TABLET PO PRN (23:18)
[2019-06-05] MEDS ORDERED: PIPERACILLIN/TAZOBACTAM 4.5 GM VIAL IVPB ONE ×3 (02:05→16:17)
[2019-06-05] MEDS ORDERED: DEXTROSE 5%-WATER 100 ML IVPB ONE ×3 (02:05→16:18)
[2019-06-05] MEDS: PIPERACILLIN/TAZOB 4.5 GM 4.5 GM in DEXTROSE 5%-WATER 100 ML IVPB SCH ×3 (02:10→17:23)
[2019-06-05] MEDS: MORPHINE SULFATE 2 MG/ML VIAL IVPUSH PRN (03:14)
[2019-06-05 07:34] LABS: BASO % 0.3 % (0-2.0); EOS % 1.1 % (0-4.5); HEMATOCRIT 38.3 % (32.4-45.2); LYMPH % 17.3 % (8-40); MCH 30.4 pg (25.7-33.7); MCHC 33.9 g/dl (32.0-36.0); MEAN CELL VOLUME 89.6 fl (80-96); MEAN PLT VOLUME 9.2 fl (7.5-11.1); MONO % 5.6 % (3.8-10.2); NEUT % 75.7 % (42.8-82.8); PLATELET COUNT 176 K/MM3 (134-434); RBC 4.27 M/mm3 (3.60-5.2)
[2019-06-05] MEDS ORDERED: MORPHINE SULFATE 2 MG/ML VIAL IVPUSH PRN (08:11)
[2019-06-05] MEDS ORDERED: ACETAMINOPHEN 1000 MG/100 ML VIAL (NON FORMULARY) IVPB PRN (08:11)
[2019-06-05 08:15] LABS: ALBUMIN 3.6 g/dl (3.4-5.0); BILIRUBIN,TOTAL 0.6 mg/dL (0.2-1); CALCIUM 8.4 mg/dL (8.5-10.1); CREATININE 0.8 mg/dL (0.55-1.3); MAGNESIUM 2.3 mg/dL (1.8-2.4); PHOSPHOROUS 2.9 mg/dL (2.5-4.9); POTASSIUM 3.6 mmol/L (3.5-5.1); TOT PROT 6.9 g/dl (6.4-8.2)
[2019-06-05] MEDS: PANTOPRAZOLE SODIUM 40 MG VIAL IVPUSH SCH (09:35)
[2019-06-05] MEDS: ACETAMINOPHEN 1000 MG/100 ML VIAL (NON FORMULARY) IVPB PRN ×2 (09:36→16:20)
[2019-06-05] MEDS: DEXTROSE 5%-NORMAL SALINE 1,000 ML IV SCH ×2 (09:50→16:20)
--- NOTE | 2019-06-05 10:08 | PN ---
Physical Exam: SUBJECTIVE: Patient seen and examined, still with abdominal pain, better than admission, no new fevers or chills noted. 1 episode of diarrhea, but no nausea/ vomiting noted. OBJECTIVE: Vital Signs Period Temp Pulse Resp BP Sys/Jackson Pulse Ox Last 24 Hr 98.2 F-99.3 F 20-116 16-20 111-140/57-75 99-100 Intake & Output 06/02/19 06/03/19 06/04/19 06/05/19 23:59 23:59 23:59 23:59 Intake Total 500 850 Balance 500 850 Weight 197 lb 11.2 oz General: lying in bed in no acute distress NecK: soft, supple, no JVD Chest: CTAB, no rales or wheezing Abdomen:Soft, lower and ramon-umbilical tenderness, most prominent, left infra umbilical region, no voluntary or involuntary guarding or rigidity, pos bowel sounds Extremities: no edema psych; pleasant Laboratory Results - last 24 hr 06/04/19 06/04/19 06/04/19 13:23 13:54 13:54 WBC 9.8 RBC 4.65 Hgb 14.2 Hct 41.5 MCV 89.1 MCH 30.6 MCHC 34.3 RDW 13.1 Plt Count 165 MPV 9.0 Absolute Neuts (auto) 8.4 H Neutrophils % 85.1 H D Lymphocytes % 7.9 L D Monocytes % 6.0 Eosinophils % 0.5 Basophils % 0.5 Nucleated RBC % 0 Sodium 138 Potassium 3.7 Chloride 103 Carbon Dioxide 29 Anion Gap 6 L BUN 6.6 L Creatinine 0.8 Est GFR (CKD-EPI)AfAm 93.53 Est GFR (CKD-EPI)NonAf 80.70 POC Glucometer Random Glucose 112 H Calcium 9.0 Phosphorus Magnesium Total Bilirubin 0.7 AST 14 L ALT 25 Alkaline Phosphatase 103 Total Protein 7.2 Albumin 4.0 Urine Color Yellow Urine Appearance Clear Urine pH 5.5 D Ur Specific [place] 1.014 Urine Protein Negative Urine Glucose (UA) Negative Urine Ketones Trace H Urine Blood Negative Urine Nitrite Negative Urine Bilirubin Negative Urine Urobilinogen 0.2 Ur Leukocyte Esterase Negative 06/05/19 06/05/19 06/05/19 06:32 06:32 06:52 WBC 8.0 RBC 4.27 Hgb 13.0 Hct 38.3 MCV 89.6 MCH 30.4 MCHC 33.9 RDW 13.0 Plt Count 176 MPV 9.2 Absolute Neuts (auto) 6.1 Neutrophils % 75.7 Lymphocytes % 17.3 D Monocytes % 5.6 Eosinophils % 1.1 D Basophils % 0.3 Nucleated RBC % 0 Sodium 139 Potassium 3.6 Chloride 105 Carbon Dioxide 27 Anion Gap 8 BUN 7.0 Creatinine 0.8 Est GFR (CKD-EPI)AfAm 93.53 Est GFR (CKD-EPI)NonAf 80.70 POC Glucometer 95 Random Glucose 89 Calcium 8.4 L Phosphorus 2.9 Magnesium 2.3 Total Bilirubin 0.6 AST 12 L ALT 22 Alkaline Phosphatase 100 Total Protein 6.9 Albumin 3.6 Urine Color Urine Appearance Urine pH Ur Specific [place] Urine Protein Urine Glucose (UA) Urine Ketones Urine Blood Urine Nitrite Urine Bilirubin Urine Urobilinogen Ur Leukocyte Esterase Active Medications Generic Name Dose Route Start Last Admin Trade Name Freq PRN Reason Stop Dose Admin Acetaminophen 1,000 mg 06/05/19 08:36 06/05/19 09:36 Ofirmev Injection - IVPB 1,000 mg Q6H PRN Administration PAIN LEVEL 4 - 6 Enoxaparin Sodium 40 mg 06/06/19 10:00 Lovenox - SQ DAILY RAHEEL Dextrose/Sodium Chloride 1,000 mls @ 125 mls/hr 06/04/19 16:15 06/05/19 09:50 D5-Ns - IV 125 mls/hr ASDIR RAHEEL Administration Piperacillin Sod/Tazobactam 100 mls @ 200 mls/hr 06/04/19 18:00 06/05/19 09: 50 Sod 4.5 gm/ Dextrose IVPB 200 mls/hr Q8H-IV RAHEEL Administration Protocol Morphine Sulfate 1 mg 06/05/19 08:11 Morphine Sulfate IVPUSH Q6H PRN PAIN LEVEL 6-10 Ondansetron HCl 4 mg 06/04/19 13:26 06/04/19 17:51 Zofran Injection IVPUSH 4 mg Q4H PRN Administration NAUSEA AND/OR VOMITING Pantoprazole Sodium 40 mg 06/05/19 10:00 06/05/19 09:35 Protonix Iv IVPUSH 40 mg DAILY RAHEEL Administration Zolpidem Tartrate 10 mg 06/04/19 19:03 06/04/19 23:18 Ambien - PO 10 mg HS PRN Administration INSOMNIA ASSESSMENT/PLAN: 58 yof with PMhx of GERD, chronic constipation, anemia, haemorrhoids admitted with Acute proximal/Mid sigmoid diverticulitis r/o abscess -Acute proximal/mid Sigmoid diverticulitis with early sepsis, r/o abscess -Chronic constipation -GERD -Anemia -Haemorrhoids Plan: ID/GI/surgery input noted. Overall abdominal exam unchanged today. Afebrile, blood cx neg so far. Zosyn day 2. Serial abdominal exam, continue NPO, IVF. Pain control with tylenol/low dose morphine. patient advised to minimize narcotics to avoid masking of symptoms. Low threshold to re-image if symptoms fail to improve or any worsening. Dc fioricet to ensure acetaminophen max dose no more than 4g in 24 hours GIPPX Protonix DVTPPX lovenox Dispo pending medical improvement. Plan discussed with patient and nursing in detail, all questions answered. Visit type - Emergency Visit Emergency Visit: Yes ED Registration Date: 06/04/19 Care time: The patient presented to the Emergency Department on the above date and was hospitalized for further evaluation of their emergent condition. - New Patient This patient is new to me today: No - Critical Care Critical Care patient: No - Discharge Referral Referred to [facility] Med P.C.: No
--- NOTE | 2019-06-05 12:08 | EKG ---
Test Reason : Blood Pressure : / mmHG Vent. Rate : 084 BPM Atrial Rate : 084 BPM P-R Int : 166 ms QRS Dur : 086 ms QT Int : 356 ms P-R-T Axes : 070 053 032 degrees QTc Int : 420 ms SINUS RHYTHM WITH MARKED SINUS ARRHYTHMIA POSSIBLE LEFT ATRIAL ENLARGEMENT BORDERLINE ECG WHEN COMPARED WITH ECG OF 08-MAR-2007 06:22, NO SIGNIFICANT CHANGE WAS FOUND Confirmed by Ez Bowie ([id number]) on 06/05/2019 12:07:26 PM Referred By: Confirmed By:Ez Bowie
--- NOTE | 2019-06-05 15:26 | PN ---
Progress Note (short form) - Note Progress Note: less abdominal pain no fever some chills last nigh loose stools nonbloody Vital Signs Period Temp Pulse Resp BP Sys/Jackson Pulse Ox Last 24 Hr 98.2 F-99.3 F 20-98 16-18 111-135/57-77 99-100 cor-rrr lungs clear abd soft,mild RLQ tenderness to palpation ext no edema CBC, BMP 06/05/19 06:32 06/05/19 06:32 Microbiology 06/04/19 15:14 Blood - Peripheral Venous Blood Culture - Preliminary NO GROWTH OBTAINED AFTER 24 HOURS, INCUBATION TO CONTINUE FOR 4 DAYS. 06/04/19 15:14 Blood - Peripheral Venous Blood Culture - Preliminary NO GROWTH OBTAINED AFTER 24 HOURS, INCUBATION TO CONTINUE FOR 4 DAYS. a/p diverticulitis metronidazole allergy continue zosyn f/u labs in am Problem List - Problems (1) Diverticulitis Code(s): K57.92 - DVTRCLI OF INTEST, PART UNSP, W/O PERF OR ABSCESS W/O BLEED (2) Metronidazole adverse reaction Code(s): T37.8X5A - ADVERSE EFFECT OF SYSTEMIC ANTI-INFECT/PARASIT, INIT
--- NOTE | 2019-06-05 19:26 | PN.GI ---
GI Progress Note Subjective: GI NOte: Less pain. Has 3 loose BMs. No chills. Feeling better. - Objective Vital Signs: Vital Signs Temperature 97.8 F 06/05/19 18:00 Pulse Rate 84 06/05/19 18:00 Respiratory Rate 18 06/05/19 18:00 Blood Pressure 112/63 06/05/19 18:00 O2 Sat by Pulse Oximetry (%) 99 06/05/19 09:00 Laboratory Tests 06/04/19 06/05/19 06/05/19 13:54 06:32 06:32 WBC 9.8 8.0 Potassium 3.6 BUN 7.0 Creatinine 0.8 Constitutional: Calm ...Auscultate: Yes: Hypoactive Bowel Sounds ...Palpate: Yes: Soft, Tenderness (minimal LLQ tenderness today) Labs: CBC, BMP 06/05/19 06:32 06/05/19 06:32 Assessment/Plan Impression: - Sigmoid diverticulitis on Zosyn improving - Personal h/o GERD and chronic constipation Plan: -- NPO for now -- Zosyn -- Narcotic analgesia prn only -- Await cultures -- Repeat CT if needed Discussed plan with her , Dr. Jett Problem List - Problems (1) Diverticulitis of sigmoid colon Code(s): K57.32 - DVTRCLI OF LG INT W/O PERFORATION OR ABSCESS W/O BLEEDING (2) Migraine Code(s): G43.909 - MIGRAINE, UNSP, NOT INTRACTABLE, WITHOUT STATUS MIGRAINOSUS (3) Hiatal hernia with GERD Code(s): K21.9 - GASTRO-ESOPHAGEAL REFLUX DISEASE WITHOUT ESOPHAGITIS; K44.9 - DIAPHRAGMATIC HERNIA WITHOUT OBSTRUCTION OR GANGRENE (4) Knee joint replacement status Code(s): Z96.659 - PRESENCE OF UNSPECIFIED ARTIFICIAL KNEE JOINT (6) Abdominal pain Code(s): R10.9 - UNSPECIFIED ABDOMINAL PAIN Qualifiers: Abdominal location: left lower quadrant Qualified Code(s): R10.32 - Left lower quadrant pain
[2019-06-05] MEDS: ZOLPIDEM TARTRATE 5 MG TABLET PO PRN (22:56)
[2019-06-06] MEDS ORDERED: PIPERACILLIN/TAZOBACTAM 4.5 GM VIAL IVPB ONE ×3 (01:27→17:04)
[2019-06-06] MEDS ORDERED: DEXTROSE 5%-WATER 100 ML IVPB ONE ×3 (01:28→17:04)
[2019-06-06] MEDS: PIPERACILLIN/TAZOB 4.5 GM 4.5 GM in DEXTROSE 5%-WATER 100 ML IVPB SCH ×3 (01:50→18:12)
[2019-06-06] MEDS: ACETAMINOPHEN 1000 MG/100 ML VIAL (NON FORMULARY) IVPB PRN ×2 (01:53→23:06)
[2019-06-06] MEDS: DEXTROSE 5%-NORMAL SALINE 1,000 ML IV SCH ×3 (05:36→15:45)
[2019-06-06 07:55] LABS: ALBUMIN 2.8 g/dl (3.4-5.0); BILIRUBIN,TOTAL 0.3 mg/dL (0.2-1); BLOOD UREA NITROGEN 4.6 mg/dL (7-18); CALCIUM 7.9 mg/dL (8.5-10.1); CREATININE 0.7 mg/dL (0.55-1.3); MAGNESIUM 2.2 mg/dL (1.8-2.4); POTASSIUM 3.5 mmol/L (3.5-5.1); TOT PROT 5.8 g/dl (6.4-8.2)
[2019-06-06 08:03] LABS: BASO % 0.4 % (0-2.0); EOS % 3.9 % (0-4.5); HEMATOCRIT 32.9 % (32.4-45.2); HEMOGLOBIN 11.3 GM/dL (10.7-15.3); LYMPH % 27.6 % (8-40); MCH 30.4 pg (25.7-33.7); MCHC 34.4 g/dl (32.0-36.0); MEAN CELL VOLUME 88.4 fl (80-96); MEAN PLT VOLUME 9.1 fl (7.5-11.1); MONO % 8.8 % (3.8-10.2); NEUT % 59.3 % (42.8-82.8); PLATELET COUNT 137 K/MM3 (134-434); RBC 3.72 M/mm3 (3.60-5.2); RDW 12.8 % (11.6-15.6); WHITE BLOOD COUNT 3.3 K/mm3 (4.0-10.0)
[2019-06-06] MEDS: PANTOPRAZOLE SODIUM 40 MG VIAL IVPUSH SCH ×2 (09:49→21:52)
[2019-06-06] MEDS ORDERED: ENOXAPARIN NA (PORCINE) 40 MG/0.4 ML DISP.SYRIN SQ SCH (10:00)
--- NOTE | 2019-06-06 10:16 | PN ---
Progress Note, Physician Chief Complaint: Mrs Jett says she is feeling better today. She is still having diarrhea but improving. Still with LLQ abdominal pain but much less than on admission. Beginning to feel hungry. Denies cp and sob. - Current Medication List Current Medications: Active Medications Acetaminophen (Ofirmev Injection -) 1,000 mg IVPB Q6H PRN PRN Reason: PAIN LEVEL 4 - 6 Last Admin: 06/06/19 01:53 Dose: 1,000 mg Dextrose/Sodium Chloride (D5-Ns -) 1,000 mls @ 125 mls/hr IV ASDIR RAHEEL Last Admin: 06/06/19 05:36 Dose: 125 mls/hr Piperacillin Sod/Tazobactam (Sod 4.5 gm/ Dextrose) 100 mls @ 200 mls/hr IVPB Q8H-IV RAHEEL; Protocol Last Admin: 06/06/19 09:49 Dose: 200 mls/hr Morphine Sulfate (Morphine Sulfate) 1 mg IVPUSH Q6H PRN PRN Reason: PAIN LEVEL 6-10 Ondansetron HCl (Zofran Injection) 4 mg IVPUSH Q4H PRN PRN Reason: NAUSEA AND/OR VOMITING Last Admin: 06/04/19 17:51 Dose: 4 mg Pantoprazole Sodium (Protonix Iv) 40 mg IVPUSH DAILY [facility] Last Admin: 06/06/19 09:49 Dose: 40 mg Zolpidem Tartrate (Ambien -) 10 mg PO HS PRN PRN Reason: INSOMNIA Last Admin: 06/05/19 22:56 Dose: 10 mg - Objective Vital Signs: Vital Signs Temperature 36.6 C 06/06/19 05:46 Pulse Rate 69 06/06/19 05:46 Respiratory Rate 18 06/06/19 05:46 Blood Pressure 116/70 06/06/19 05:46 O2 Sat by Pulse Oximetry (%) 99 06/05/19 21:00 Constitutional: Yes: Well Nourished, No Distress, Calm Cardiovascular: Yes: Regular Rate and Rhythm. No: Gallop, Murmur, Rub Respiratory: Yes: Regular, CTA Bilaterally. No: Rales, Rhonchi, Wheezes Gastrointestinal: Yes: Normal Bowel Sounds, Soft, Tenderness (slight in LLQ with deep palpation). No: Distention Extremities: Yes: WNL Edema: No Labs: CBC, BMP 06/06/19 06:18 06/06/19 06:18 Problem List - Problems (1) Diverticulitis of sigmoid colon Assessment/Plan: -appreciate ID, surgical, and GI assistance -continue zosyn currently -afebrile and normal WBC count -also with lessening pain and increasing appetite -confident patient will respond to medical intervention only and not need surgical intervention this hospital stay -will await GI recommendations but suspect she is safe for her diet to be advanced to clear liquids today -she is walking so will stop lovenox -does not need FSBS, will discontinue as well -will add I/S to prevent atelectasis -if continues to improve and tolerates diet, suspect will be able to discharge in next 1-2 days Code(s): K57.32 - DVTRCLI OF LG INT W/O PERFORATION OR ABSCESS W/O BLEEDING
--- NOTE | 2019-06-06 11:13 | PN.GI ---
GI Progress Note Subjective: GI note: has minimal left lower quadrant pain. Only one episode of diarrhea overnight. No chills. WBC is down to 3.3 but Celine informed me that she has chronic leucopenia - Objective Vital Signs: Vital Signs Temperature 98.0 F 06/06/19 10:00 Pulse Rate 67 06/06/19 10:00 Respiratory Rate 20 06/06/19 10:00 Blood Pressure 147/76 06/06/19 10:00 O2 Sat by Pulse Oximetry (%) 99 06/05/19 21:00 Laboratory Tests 06/04/19 06/05/19 06/06/19 13:54 06:32 06:18 WBC 9.8 8.0 3.3 L C-Reactive Protein 06/06/19 06:18 WBC C-Reactive Protein 15.9 H Constitutional: Calm ...Auscultate: Yes: Normoactive Bowel Sounds ...Palpate: Yes: Soft, Tenderness (minimal LLQ tenderness on deep palpation) Labs: CBC, BMP 06/06/19 06:18 06/06/19 06:18 Assessment/Plan Impression: - Sigmoid diverticulitis on Zosyn continues to improve - Personal h/o GERD and chronic constipation - Negative for C.diff Plan: -- Trial of clear liquids -- Zosyn -- Narcotic analgesia prn only -- Negative blood cultures -- Repeat CT if needed Problem List - Problems (1) Diverticulitis of sigmoid colon Code(s): K57.32 - DVTRCLI OF LG INT W/O PERFORATION OR ABSCESS W/O BLEEDING (2) Migraine Code(s): G43.909 - MIGRAINE, UNSP, NOT INTRACTABLE, WITHOUT STATUS MIGRAINOSUS (3) Hiatal hernia with GERD Code(s): K21.9 - GASTRO-ESOPHAGEAL REFLUX DISEASE WITHOUT ESOPHAGITIS; K44.9 - DIAPHRAGMATIC HERNIA WITHOUT OBSTRUCTION OR GANGRENE (4) Knee joint replacement status Code(s): Z96.659 - PRESENCE OF UNSPECIFIED ARTIFICIAL KNEE JOINT (6) Abdominal pain Code(s): R10.9 - UNSPECIFIED ABDOMINAL PAIN Qualifiers: Abdominal location: left lower quadrant Qualified Code(s): R10.32 - Left lower quadrant pain
--- NOTE | 2019-06-06 11:40 | PN ---
Progress Note (short form) - Note Progress Note: surgery pt seen and examined. feels well. started on clear liquids by medical team. afebrile abd- soft, minimal llq tenderness Laboratory Tests 06/06/19 06:18 WBC 3.3 L Plan- uncomplicated first episode of diverticulitis. no surgical intervention. cont medical management.
--- NOTE | 2019-06-06 16:22 | PN ---
Progress Note (short form) - Note Progress Note: tolerating clears still some LLQ pain no morphine still loose stools Vital Signs Period Temp Pulse Resp BP Sys/Jackson Pulse Ox Last 24 Hr 97.8 F-98.6 F 62-84 18-20 112-147/63-76 95-99 cor-rrr lungs clear abd soft,mild LLQ tenderness to palpation ext no edema CBC, BMP 06/06/19 06:18 06/06/19 06:18 Microbiology 06/04/19 15:14 Blood - Peripheral Venous Blood Culture - Preliminary NO GROWTH OBTAINED AFTER 48 HOURS, INCUBATION TO CONTINUE FOR 3 DAYS. 06/04/19 15:14 Blood - Peripheral Venous Blood Culture - Preliminary NO GROWTH OBTAINED AFTER 48 HOURS, INCUBATION TO CONTINUE FOR 3 DAYS. 06/05/19 15:00 Stool Gram Stain - Final 06/05/19 15:00 Stool Clostridioides difficile Antigen - Final-NEGATIVE 06/05/19 15:00 Stool Clostridioides difficile Toxin Assay - Final_NEGATIVE a/p diverticulitis metronidazole allergy continue zosyn f/u labs in am Problem List - Problems (1) Diverticulitis Code(s): K57.92 - DVTRCLI OF INTEST, PART UNSP, W/O PERF OR ABSCESS W/O BLEED (2) Metronidazole adverse reaction Code(s): T37.8X5A - ADVERSE EFFECT OF SYSTEMIC ANTI-INFECT/PARASIT, INIT
[2019-06-06] MEDS: ZOLPIDEM TARTRATE 5 MG TABLET PO PRN (23:06)
[2019-06-07] MEDS ORDERED: PIPERACILLIN/TAZOBACTAM 4.5 GM VIAL IVPB ONE ×3 (01:22→17:22)
[2019-06-07] MEDS ORDERED: DEXTROSE 5%-WATER 100 ML IVPB ONE ×3 (01:22→17:22)
[2019-06-07] MEDS: PIPERACILLIN/TAZOB 4.5 GM 4.5 GM in DEXTROSE 5%-WATER 100 ML IVPB SCH ×3 (01:27→17:31)
[2019-06-07] MEDS: DEXTROSE 5%-NORMAL SALINE 1,000 ML IV SCH (01:28)
[2019-06-07] MEDS: MAG HYDROX/AL HYDROX/SIMETH 30 ML UNIT-DOSE CUP PO PRN (02:25)
[2019-06-07 07:50] LABS: BASO % 0.6 % (0-2.0); HEMATOCRIT 34.7 % (32.4-45.2); HEMOGLOBIN 11.9 GM/dL (10.7-15.3); MCH 30.3 pg (25.7-33.7); MCHC 34.2 g/dl (32.0-36.0); MEAN CELL VOLUME 88.7 fl (80-96); MEAN PLT VOLUME 8.9 fl (7.5-11.1); MONO % 10.8 % (3.8-10.2); NEUT % 46.6 % (42.8-82.8); PLATELET COUNT 173 K/MM3 (134-434); RBC 3.91 M/mm3 (3.60-5.2); RDW 12.6 % (11.6-15.6); WHITE BLOOD COUNT 2.5 K/mm3 (4.0-10.0)
[2019-06-07 08:12] LABS: CALCIUM 8.2 mg/dL (8.5-10.1); CREATININE 0.7 mg/dL (0.55-1.3); MAGNESIUM 2.3 mg/dL (1.8-2.4); PHOSPHOROUS 3.5 mg/dL (2.5-4.9); POTASSIUM 3.3 mmol/L (3.5-5.1)
[2019-06-07 08:22] LABS: BLOOD UREA NITROGEN 2.3 mg/dL (7-18)
[2019-06-07] MEDS ORDERED: POTASSIUM CHLORIDE TABS 20 MEQ TABLET.ER (FP) PO ONE (08:34)
[2019-06-07] MEDS: PANTOPRAZOLE SODIUM 40 MG VIAL IVPUSH SCH (09:43)
[2019-06-07] MEDS ORDERED: PANTOPRAZOLE SODIUM 80 MG in SODIUM CHLORIDE 100 ML IVPB SCH (10:15)
--- NOTE | 2019-06-07 12:25 | PN.GI ---
GI Progress Note Subjective: pt is feeling much better . no acute events over night , no fever, no BM over night , has 3 episode of diarrhea today morning tolerating clear liquid diet and asking for full liquid diet denies any blood in stool pt reports epigastric discomfort improved by protonix - Objective Vital Signs: Vital Signs Temperature 98.9 F 06/07/19 10:00 Pulse Rate 76 06/07/19 10:00 Respiratory Rate 18 06/07/19 10:00 Blood Pressure 123/79 06/07/19 10:00 O2 Sat by Pulse Oximetry (%) 95 06/07/19 09:00 Constitutional: Well Nourished, No Distress Eyes: Yes: WNL, Conjunctiva Clear HENT: Yes: Atraumatic, Normocephalic Neck: Yes: Supple Cardiovascular: Yes: Regular Rate and Rhythm Respiratory: Yes: CTA Bilaterally Gastrointestinal Inspection: No: Ascites, Distention ...Auscultate: Yes: Normoactive Bowel Sounds ...Palpate: Yes: Soft, Tenderness (LLQ mild), Tenderness, Epigastium (mild). No : Firm/Rigid, Guarding, Tenderness, Rebound ...Percussion: Yes: Tympanitic ...Rectal Exam: Yes: Deferred Genitourinary: No: CVA Tenderness - Left Musculoskeletal: Yes: WNL Extremities: Yes: WNL Edema: No Peripheral Pulses WNL: Yes Neurological: Yes: Alert, Oriented Labs: CBC, BMP 06/07/19 06:12 06/07/19 06:12 - ....Imaging Cat Scan: Report Reviewed (Findings consistent with diverticulitis involving the proximal and mid sigmoid colon with stranding of the pericolonic fat and a small amount of fluid seen in the left hemipelvis for which a follow-up is needed to rule out a small abscess. No extraluminal air is identified.) <Amrik Lowe - Last Filed: 06/07/19 13:01> - Objective Vital Signs: Vital Signs Temperature 98.0 F 06/08/19 06:00 Pulse Rate 68 06/08/19 06:00 Respiratory Rate 18 06/08/19 06:00 Blood Pressure 108/62 06/08/19 06:00 O2 Sat by Pulse Oximetry (%) 96 06/07/19 21:00 <Veronika Wade - Last Filed: 06/08/19 08:07> Assessment/Plan #Sigmoid diverticulitis * tolerating clear liquid diet , advance as tolerated * LLQ mild pain and improving * cont Zosyn day # 4 * Metronidazole allergy * QTC 420 * surgery consulted : no surgical intervention at this point * can repeat CT scan as out pt * C.Dif negative , Blood cx negative * CRP trending down 15.....9 * wbc trending down 9.....8....3.5 ...2.5 * replenished K by primary team # GERD * cont PPI IV BID , denies PPI drip * head of bed elevation after meals * h.o hiatal hernia * educated about loosing weight and small frequent meals * avoid coffee, and food exacerbating acid reflux <Amrik Lowe - Last Filed: 06/07/19 13:01> ATTENDING PHYSICIAN STATEMENT I saw and evaluated the patient. I reviewed the resident's note and discussed the case with the resident. I agree with the resident's findings and plan as documented. SUBJECTIVE: Clinically improved. Pain resolved. Diarrhea persists. OBJECTIVE: Abd: BS normoactive, nontender. ASSESSMENT AND PLAN: - Agree with advancing to full liquid diet - Continue Zosyn - Discussed case with resident <Veronika Wade - Last Filed: 06/08/19 08:07> Problem List - Problems (1) Abdominal pain Code(s): R10.9 - UNSPECIFIED ABDOMINAL PAIN Qualifiers: Abdominal location: left lower quadrant Qualified Code(s): R10.32 - Left lower quadrant pain (2) Diverticulitis of sigmoid colon Code(s): K57.32 - DVTRCLI OF LG INT W/O PERFORATION OR ABSCESS W/O BLEEDING (3) Hiatal hernia with GERD Code(s): K21.9 - GASTRO-ESOPHAGEAL REFLUX DISEASE WITHOUT ESOPHAGITIS; K44.9 - DIAPHRAGMATIC HERNIA WITHOUT OBSTRUCTION OR GANGRENE (4) Metronidazole adverse reaction Code(s): T37.8X5A - ADVERSE EFFECT OF SYSTEMIC ANTI-INFECT/PARASIT, INIT <Amrik Lowe - Last Filed: 06/07/19 13:01> - Problems (1) Diverticulitis of sigmoid colon Code(s): K57.32 - DVTRCLI OF LG INT W/O PERFORATION OR ABSCESS W/O BLEEDING (2) Migraine Code(s): G43.909 - MIGRAINE, UNSP, NOT INTRACTABLE, WITHOUT STATUS MIGRAINOSUS (3) Hiatal hernia with GERD Code(s): K21.9 - GASTRO-ESOPHAGEAL REFLUX DISEASE WITHOUT ESOPHAGITIS; K44.9 - DIAPHRAGMATIC HERNIA WITHOUT OBSTRUCTION OR GANGRENE (4) Knee joint replacement status Code(s): Z96.659 - PRESENCE OF UNSPECIFIED ARTIFICIAL KNEE JOINT (6) Abdominal pain Code(s): R10.9 - UNSPECIFIED ABDOMINAL PAIN Qualifiers: Abdominal location: left lower quadrant Qualified Code(s): R10.32 - Left lower quadrant pain <Veronika Wade - Last Filed: 06/08/19 08:07>
--- NOTE | 2019-06-07 14:57 | PN ---
Progress Note, Physician Chief Complaint: Mrs Jett says she is feeling better today, she is still having diarrhea but it sounds less than prior. She had heartburn yesterday after drinking coffee. Today she says her abdominal pain is resolved. She denies cp, sob, n/v. She is tolerating a clear liquid diet - Current Medication List Current Medications: Active Medications Al Hydroxide/Mg Hydroxide (Mylanta Oral Suspension -) 30 ml PO Q4H PRN PRN Reason: INDIGESTION Last Admin: 06/07/19 02:25 Dose: 30 ml Piperacillin Sod/Tazobactam (Sod 4.5 gm/ Dextrose) 100 mls @ 200 mls/hr IVPB Q8H-IV RAHEEL; Protocol Last Admin: 06/07/19 09:43 Dose: 200 mls/hr Ondansetron HCl (Zofran Injection) 4 mg IVPUSH Q4H PRN PRN Reason: NAUSEA AND/OR VOMITING Last Admin: 06/04/19 17:51 Dose: 4 mg Pantoprazole Sodium (Protonix -) 40 mg PO DAILY RAHEEL Zolpidem Tartrate (Ambien -) 10 mg PO HS PRN PRN Reason: INSOMNIA Last Admin: 06/06/19 23:06 Dose: 10 mg - Objective Vital Signs: Vital Signs Temperature 36.7 C 06/07/19 14:08 Pulse Rate 76 06/07/19 14:08 Respiratory Rate 18 06/07/19 14:08 Blood Pressure 130/79 06/07/19 14:08 O2 Sat by Pulse Oximetry (%) 95 06/07/19 09:00 Constitutional: Yes: Well Nourished, No Distress, Calm Cardiovascular: Yes: Regular Rate and Rhythm. No: Gallop, Murmur, Rub Respiratory: Yes: Regular, CTA Bilaterally. No: Rales, Rhonchi, Wheezes Gastrointestinal: Yes: Normal Bowel Sounds, Soft. No: Distention, Tenderness Extremities: Yes: WNL Edema: No Labs: CBC, BMP 06/07/19 06:12 06/07/19 06:12 Problem List - Problems (1) Diverticulitis of sigmoid colon Assessment/Plan: -appreciate ID, surgical, and GI assistance -no need for surgical intervention -Dr Alejandre to see today, ? if can stop antibiotics -will place on oral protonix for GERD -advance diet to full liquids tonight, but will await Dr Wade to see as well as maybe can be advanced to a solid diet -patient is doing very well today -if able to advance diet and diarrhea improves, suspect she can be discharged home tomorrow -will stop IVFs and patient is tolerating orals Code(s): K57.32 - DVTRCLI OF LG INT W/O PERFORATION OR ABSCESS W/O BLEEDING (2) Hypokalemia Assessment/Plan: -secondary to diarrhea and decreased po intake -replaced with oral potassium, did not cause GI upset -recheck in am Code(s): E87.6 - HYPOKALEMIA
--- NOTE | 2019-06-07 16:18 | PN ---
Progress Note (short form) - Note Progress Note: still loose stools still some RLQ discomfort but improved tolerating clears Vital Signs Period Temp Pulse Resp BP Sys/Jackson Pulse Ox Last 24 Hr 97.9 F-98.9 F 61-76 18-20 123-142/52-79 95-95 cor-rrr lungs clear abd soft, LLQ discomfort to deep palpation no rebound ext no edema CBC, BMP 06/07/19 06:12 06/07/19 06:12 Microbiology 06/04/19 15:14 Blood - Peripheral Venous Blood Culture - Preliminary NO GROWTH OBTAINED AFTER 72 HOURS, INCUBATION TO CONTINUE FOR 2 DAYS. 06/04/19 15:14 Blood - Peripheral Venous Blood Culture - Preliminary NO GROWTH OBTAINED AFTER 72 HOURS, INCUBATION TO CONTINUE FOR 2 DAYS. 06/05/19 15:00 Stool Salmonella/Shigella Culture - Preliminary NO ENTERIC PATHOGENS, 24 HOURS, ON PRIMARY PLATES 06/05/19 15:00 Stool Yersinia Culture - Preliminary NO ENTERIC PATHOGENS, 24 HOURS, ON PRIMARY PLATES 06/05/19 15:00 Stool Vibrio Culture - Final NO GROWTH OF VIBRIO SPECIES OBTAINED 06/05/19 15:00 Stool Escherichia coli 0157 Culture - Final NO GROWTH OF E COLI 0157 OBTAINED 06/05/19 15:00 Stool Gram Stain - Final 06/05/19 15:00 Stool Clostridioides difficile Antigen - Final 06/05/19 15:00 Stool Clostridioides difficile Toxin Assay - Final Laboratory Tests 06/06/19 06/07/19 06:18 06:12 C-Reactive Protein 15.9 H 9.4 H a/p diverticulitis metronidazole allergy continue zosyn day #3 diet being advanced can switch to po augmentin in am if okay with GI would treat total 10 days improving Problem List - Problems (1) Diverticulitis Code(s): K57.92 - DVTRCLI OF INTEST, PART UNSP, W/O PERF OR ABSCESS W/O BLEED (2) Metronidazole adverse reaction Code(s): T37.8X5A - ADVERSE EFFECT OF SYSTEMIC ANTI-INFECT/PARASIT, INIT
--- NOTE | 2019-06-07 17:18 | PN.GI ---
GI Progress Note Subjective: GI NOte: Feeling much beter. Pain has resolved. Reflux under better control. Diarrhea persists. No growth in blood cultures - Objective Vital Signs: Vital Signs Temperature 98.0 F 06/07/19 14:08 Pulse Rate 76 06/07/19 14:08 Respiratory Rate 18 06/07/19 14:08 Blood Pressure 130/79 06/07/19 14:08 O2 Sat by Pulse Oximetry (%) 95 06/07/19 09:00 Laboratory Tests 06/04/19 06/06/19 06/06/19 13:54 06:18 06:18 WBC 9.8 3.3 L Hgb C-Reactive Protein 15.9 H 06/07/19 06/07/19 06:12 06:12 WBC 2.5 L Hgb 11.9 C-Reactive Protein 9.4 H Constitutional: Calm ...Auscultate: Yes: Normoactive Bowel Sounds ...Palpate: Yes: Soft, Other (nontender) Labs: CBC, BMP 06/07/19 06:12 06/07/19 06:12 Assessment/Plan Impression: - Sigmoid diverticulitis resolving - Personal h/o GERD and chronic constipation - Negative for C.diff Plan: -- Agree iwth diet advance to full liquids -- Zosyn -- Narcotic analgesia prn only -- Repeat CT if needed Problem List - Problems (1) Diverticulitis of sigmoid colon Code(s): K57.32 - DVTRCLI OF LG INT W/O PERFORATION OR ABSCESS W/O BLEEDING (2) Migraine Code(s): G43.909 - MIGRAINE, UNSP, NOT INTRACTABLE, WITHOUT STATUS MIGRAINOSUS (3) Hiatal hernia with GERD Code(s): K21.9 - GASTRO-ESOPHAGEAL REFLUX DISEASE WITHOUT ESOPHAGITIS; K44.9 - DIAPHRAGMATIC HERNIA WITHOUT OBSTRUCTION OR GANGRENE (4) Knee joint replacement status Code(s): Z96.659 - PRESENCE OF UNSPECIFIED ARTIFICIAL KNEE JOINT (6) Abdominal pain Code(s): R10.9 - UNSPECIFIED ABDOMINAL PAIN Qualifiers: Abdominal location: left lower quadrant Qualified Code(s): R10.32 - Left lower quadrant pain
[2019-06-07] MEDS ORDERED: PANTOPRAZOLE SODIUM 40 MG VIAL IVPUSH SCH (22:00)
[2019-06-07] MEDS ORDERED: ACETAMINOPHEN 325 MG TABLET (FP) PO ONE (22:49)
[2019-06-07] MEDS: ZOLPIDEM TARTRATE 5 MG TABLET PO PRN (23:18)
[2019-06-08] MEDS ORDERED: DEXTROSE 5%-WATER 100 ML IVPB ONE ×2 (01:22→08:47)
[2019-06-08] MEDS ORDERED: PIPERACILLIN/TAZOBACTAM 4.5 GM VIAL IVPB ONE ×2 (01:22→08:47)
[2019-06-08] MEDS: PIPERACILLIN/TAZOB 4.5 GM 4.5 GM in DEXTROSE 5%-WATER 100 ML IVPB SCH ×2 (01:35→11:10)
[2019-06-08 07:27] LABS: BASO % 0.9 % (0-2.0); EOS % 4.6 % (0-4.5); HEMATOCRIT 35.5 % (32.4-45.2); HEMOGLOBIN 12.3 GM/dL (10.7-15.3); LYMPH % 40.6 % (8-40); MCH 30.3 pg (25.7-33.7); MCHC 34.5 g/dl (32.0-36.0); MEAN CELL VOLUME 87.9 fl (80-96); MEAN PLT VOLUME 8.5 fl (7.5-11.1); MONO % 13.8 % (3.8-10.2); NEUT % 40.1 % (42.8-82.8); PLATELET COUNT 187 K/MM3 (134-434); RBC 4.04 M/mm3 (3.60-5.2); RDW 12.3 % (11.6-15.6)
[2019-06-08 08:27] LABS: BLOOD UREA NITROGEN 3.2 mg/dL (7-18); CALCIUM 8.7 mg/dL (8.5-10.1); CREATININE 0.8 mg/dL (0.55-1.3); MAGNESIUM 2.3 mg/dL (1.8-2.4); PHOSPHOROUS 4.1 mg/dL (2.5-4.9); POTASSIUM 3.7 mmol/L (3.5-5.1)
--- NOTE | 2019-06-08 09:23 | PN ---
Progress Note (short form) - Note Progress Note: felling better but still with diarrhea , abdominal pain is better today with minimal Epigastric discofort denies any fever, N/V Vital Signs - 24 hr 06/07/19 06/07/19 06/07/19 10:00 14:08 18:00 Temperature 98.9 F 98.0 F 98.2 F Pulse Rate 76 76 70 Respiratory 18 18 18 Rate Blood Pressure 123/79 130/79 134/73 O2 Sat by Pulse Oximetry (%) 06/07/19 06/07/19 06/08/19 21:00 22:00 06:00 Temperature 98.0 F 98.0 F Pulse Rate 74 68 Respiratory 18 18 Rate Blood Pressure 130/79 108/62 O2 Sat by Pulse 96 Oximetry (%) PE: Head : NC/AT Lungs: CTA B/L Heart : RRR Abdopmen : soft , ND , Mild tenderness in epigastric area LE : No Edema , +2 Pulse Neuro: AAo3 no focal deficit CBC, BMP 06/08/19 06:10 06/08/19 06:10 A/P #Abdominal pain #sigmoid diverticular bleed # Diarrhea Plan : * advance to regular diet * Cont PPI 40 PO BID * switch to Po abx per ID * <Amrik Lowe - Last Filed: 06/08/19 09:25> - Note Progress Note: ATTENDING PHYSICIAN STATEMENT I saw and evaluated the patient. I reviewed the resident's note and discussed the case with the resident. I agree with the resident's findings and plan as documented. SUBJECTIVE: Morning diarrhea has subsided. Had soft diet lunch and tolerated it well. Zosyn stopped due to leukopenia and switched to ertapenem. This precludes discharge at this time OBJECTIVE:Abd: BS normoactive , nontender ASSESSMENT AND PLAN: -- Resolving diverticulitis -- Leukopenia ? related to Zosyn. Discussed with Hill Coles and Dr. Lowe -- Switch to low residual diet <Veronika Wade - Last Filed: 06/08/19 14:34> Problem List - Problems (1) Abdominal pain Code(s): R10.9 - UNSPECIFIED ABDOMINAL PAIN Qualifiers: Abdominal location: left lower quadrant Qualified Code(s): R10.32 - Left lower quadrant pain (2) Diverticulitis of sigmoid colon Code(s): K57.32 - DVTRCLI OF LG INT W/O PERFORATION OR ABSCESS W/O BLEEDING (3) Hiatal hernia with GERD Code(s): K21.9 - GASTRO-ESOPHAGEAL REFLUX DISEASE WITHOUT ESOPHAGITIS; K44.9 - DIAPHRAGMATIC HERNIA WITHOUT OBSTRUCTION OR GANGRENE (4) Metronidazole adverse reaction Code(s): T37.8X5A - ADVERSE EFFECT OF SYSTEMIC ANTI-INFECT/PARASIT, INIT <Amrik Lowe - Last Filed: 06/08/19 09:25> - Problems (1) Diverticulitis of sigmoid colon Code(s): K57.32 - DVTRCLI OF LG INT W/O PERFORATION OR ABSCESS W/O BLEEDING (2) Migraine Code(s): G43.909 - MIGRAINE, UNSP, NOT INTRACTABLE, WITHOUT STATUS MIGRAINOSUS (3) Hiatal hernia with GERD Code(s): K21.9 - GASTRO-ESOPHAGEAL REFLUX DISEASE WITHOUT ESOPHAGITIS; K44.9 - DIAPHRAGMATIC HERNIA WITHOUT OBSTRUCTION OR GANGRENE (4) Knee joint replacement status Code(s): Z96.659 - PRESENCE OF UNSPECIFIED ARTIFICIAL KNEE JOINT (6) Abdominal pain Code(s): R10.9 - UNSPECIFIED ABDOMINAL PAIN Qualifiers: Abdominal location: left lower quadrant Qualified Code(s): R10.32 - Left lower quadrant pain <Veronika Wade - Last Filed: 06/08/19 14:34>
[2019-06-08] MEDS: PANTOPRAZOLE 40 MG TABLET (FP) PO SCH (09:57)
--- NOTE | 2019-06-08 10:43 | PN ---
Progress Note (short form) - Note Progress Note: diet advanced still some loose stools no abdominal pain Vital Signs Period Temp Pulse Resp BP Sys/Jackson Pulse Ox Last 24 Hr 98.0 F-98.2 F 68-76 18-18 108-134/62-79 96 cor-rrr lungs clear abd soft,nt ext no edema CBC, BMP 06/08/19 06:10 06/08/19 06:10 Microbiology 06/05/19 15:00 Stool Salmonella/Shigella Culture - Final NO GROWTH OF SALMONELLA OR SHIGELLA SPECIES OBTAINED 06/05/19 15:00 Stool Campylobacter Culture - Final NO GROWTH OF CAMPYLOBACTER SPECIES OBTAINED 06/05/19 15:00 Stool Yersinia Culture - Final NO GROWTH OF YERSINIA SPECIES OBTAINED 06/05/19 15:00 Stool Vibrio Culture - Final NO GROWTH OF VIBRIO SPECIES OBTAINED 06/05/19 15:00 Stool Escherichia coli 0157 Culture - Final NO GROWTH OF E COLI 0157 OBTAINED 06/04/19 15:14 Blood - Peripheral Venous Blood Culture - Preliminary NO GROWTH OBTAINED AFTER 72 HOURS, INCUBATION TO CONTINUE FOR 2 DAYS. 06/04/19 15:14 Blood - Peripheral Venous Blood Culture - Preliminary NO GROWTH OBTAINED AFTER 72 HOURS, INCUBATION TO CONTINUE FOR 2 DAYS. 06/05/19 15:00 Stool Gram Stain - Final 06/05/19 15:00 Stool Clostridioides difficile Antigen - Final 06/05/19 15:00 Stool Clostridioides difficile Toxin Assay - Final Laboratory Tests 06/06/19 06/07/19 06/08/19 06:18 06:12 06:10 C-Reactive Protein 15.9 H 9.4 H 5.9 H a/p diverticulitis metronidazole allergy worsening leukopenia- baseline around 4000 per patient- will d/c zosyn- switch to ertapenem hematology to see diet being advanced f/u cbc, crp in am d/w patient at bedside d/w Dr Nunez Problem List - Problems (1) Diverticulitis Code(s): K57.92 - DVTRCLI OF INTEST, PART UNSP, W/O PERF OR ABSCESS W/O BLEED (2) Metronidazole adverse reaction Code(s): T37.8X5A - ADVERSE EFFECT OF SYSTEMIC ANTI-INFECT/PARASIT, INIT
[2019-06-08] MEDS: ERTAPENEM SODIUM 1 GM in SODIUM CHLORIDE 50 ML IVPB SCH (11:30)
--- NOTE | 2019-06-08 16:26 | CONSULT ---
Consult Consult Specialty:: HEMATOLOGY - 0NCOLOGY Referred by:: Dr. Nunez Reason for Consultation:: Leukopenia - History of Present Illness Chief Complaint: Abdomonal pain, fever, diverticulitis - History Source History Provided By: Patient, Medical Record Limitations to Obtaining History: No Limitations - Past Medical History SENSITIZED PAPER TESTER: Yes: Migraine Pulmonary: Yes: Asthma (GERD related) Gastrointestinal: Yes: Diverticulosis, GERD, Hiatal Hernia, Other (duodenitis) Heme/Onc: Yes: Other (leukopenia dating back to 2013,2014) - Past Surgical History Past Surgical History: Yes: Hysterectomy (CARRIE 2006 fo fibroid with ovaries intact), Joint Replacement (right TKR September 2018 @ [facility]) - Alcohol/Substance Use Hx Alcohol Use: Yes (social) History of Substance Use: reports: None - Smoking History Smoking history: Never smoked Have you smoked in the past 12 months: No - Social History Usual Living Arrangement: With Spouse ADL: Independent Occupation: [employer] History of Recent Travel: Yes ([place], [place]) Home Medications - Allergies Allergies/Adverse Reactions: Allergies Allergy/AdvReac Type Severity Reaction Status Date / Time metronidazole [From Flagyl] Allergy Verified 06/03/19 19:38 - Home Medications Home Medications: Ambulatory Orders Zolpidem Tartrate [Ambien] 6.5 mg PO HS PRN 02/20/15 Butalb/Acetaminophen/Caffeine [Fioricet 50-300-40 mg Capsule] 1 each PO PRN PRN 05/05/15 Pantoprazole Sodium [Protonix -] 40 mg PO DAILY PRN 06/03/19 Polyethylene Glycol 3350 [Miralax (For Daily Use) -] 17 gm PO DAILY PRN Sennosides/Docusate Sodium [Senokot-S Tablet] 1 each PO HS PRN 06/03/19 Family Disease History - Family Disease History Family Disease History: Diabetes: Father ( of lung ca 79, had kidney ca), Heart Disease: Father, CA: Father, Mother ( breast cancer in her 50s), Other : Sister (lymphacytic colitis) Other Family History: Pat uncle had melanoma,. Mat uncle had prostate cancer Review of Systems - Review of Systems Constitutional: reports: Fever (PRIOR TO ADMISSION - 100=----> 101+) Eyes: denies: Double Vision, Recent Change in Vision HENT: denies: Difficult Swallowing, Epistaxis, Throat Pain Neck: denies: Stiffness, Swollen Glands, Tenderness Cardiovascular: reports: Shortness of Breath. denies: Chest Pain Respiratory: reports: SOB Gastrointestinal: reports: Abdominal Pain, Diarrhea Genitourinary: denies: No Symptoms, Dysuria, Flank Pain, Frequency Breasts: reports: Other (last mammogram 2 years earlier) Musculoskeletal: reports: Other (s/p left total knee surgery) Integumentary: denies: Eczema, Erythema, Pruritis, Rash Neurological: reports: No Symptoms Endocrine: reports: No Symptoms Hematology/Lymphatic: reports: No Symptoms Psychiatric: reports: No Symptoms Physical Exam Vital Signs: Vital Signs Temperature 98.0 F 06/08/19 15:02 Pulse Rate 76 06/08/19 15:02 Respiratory Rate 18 06/08/19 15:02 Blood Pressure 133/83 06/08/19 15:02 O2 Sat by Pulse Oximetry (%) 96 06/08/19 09:00 Constitutional: Yes: No Distress Eyes: Yes: Conjunctiva Clear, EOM Intact, PERRL. No: Diplopia, Ptosis, Sclera Icterus HENT: Yes: Atraumatic, Normocephalic. No: Hoarseness, Pharyngeal Erythema, Thrush, Tonsillar Exudate Neck: Yes: Supple, Trachea Midline. No: Lymphadenopathy, Tenderness, Thyromegaly Cardiovascular: Yes: Regular Rate and Rhythm Respiratory: Yes: CTA Bilaterally Gastrointestinal: Yes: Soft. No: Hepatomegaly, Splenomegaly, Tenderness Renal/: No: CVA Tenderness - Left, CVA Tenderness - Right Breast(s): Yes: WNL, Left, Right Musculoskeletal: No: Back Pain, Joint Stiffness, Muscle Pain Extremities: No: Calf Tenderness, Cyanosis Edema: No Integumentary: No: Rash Neurological: Yes: WNL ...Motor Strength: WNL Psychiatric: Yes: WNL Labs: CBC, BMP 06/08/19 06:10 06/08/19 06:10 Imaging - Results Cat Scan: Report Reviewed Problem List - Problems (1) Diverticulitis of sigmoid colon Assessment/Plan: Clinically improved with antibiotic therapy. Diet has been advanced Tenderness in abdomen virtually resolved . Code(s): K57.32 - DVTRCLI OF LG INT W/O PERFORATION OR ABSCESS W/O BLEEDING (2) Neutropenia Assessment/Plan: Patient with history of chronic leukopenia of between 3.6K to 4.2K dating back to 2013. Initial presentation with fevers, abdominal pain, diverticulitis on CT and with WBC of 9800. For this patient , this presenting WBC count may reflect a "leucocytosis" based upon baseline counts. Subsequently with improvement in diverticulitis , WBC has gradually come down. Over 5 days , WBC has fallen to 2000 with ANC ( by computer) of 800. Suspect falling WBC is reflection of clearing of infection and zosyn therapy. (now changed) Code(s): D70.9 - NEUTROPENIA, UNSPECIFIED Assessment/Plan Peripheral smear reviewed : RBC- nc/nc WBC- 35 cell count differential - 13 PMN's, 2 bands, 18 lymphocytes, 1 atypical lymph, 1 Rieder cell, 2 monocytes, 1 basophil No toxic granulation or Dohle bodies appreciated Platelets- adequate. Would monitor for now . If continued fall, may need neupogen. In view of chronic neutropenia , can do flow on 06/11 and can otherwise do outpatient workup. Additional Health maintenance: Family history of mother with breast ca in 40's. No mammography x 2 years. When diverticulitis is resolved , patient will follow up on this.
--- NOTE | 2019-06-08 19:11 | PN ---
Progress Note, Physician Chief Complaint: Mrs Jett is without complaint today. Tolerating diet. Denies cp, sob, n/v. - Current Medication List Current Medications: Active Medications Al Hydroxide/Mg Hydroxide (Mylanta Oral Suspension -) 30 ml PO Q4H PRN PRN Reason: INDIGESTION Last Admin: 06/07/19 02:25 Dose: 30 ml Ertapenem 1 gm/ Sodium (Chloride) 50 mls @ 100 mls/hr IVPB DAILY [facility] Last Admin: 06/08/19 11:30 Dose: 100 mls/hr Ondansetron HCl (Zofran Injection) 4 mg IVPUSH Q4H PRN PRN Reason: NAUSEA AND/OR VOMITING Last Admin: 06/04/19 17:51 Dose: 4 mg Pantoprazole Sodium (Protonix -) 40 mg PO DAILY [facility] Last Admin: 06/08/19 09:57 Dose: 40 mg Zolpidem Tartrate (Ambien -) 10 mg PO HS PRN PRN Reason: INSOMNIA Last Admin: 06/07/19 23:18 Dose: 10 mg - Objective Vital Signs: Vital Signs Temperature 36.7 C 06/08/19 15:02 Pulse Rate 76 06/08/19 15:02 Respiratory Rate 18 06/08/19 15:02 Blood Pressure 133/83 06/08/19 15:02 O2 Sat by Pulse Oximetry (%) 96 06/08/19 09:00 Constitutional: Yes: Well Nourished, No Distress, Calm Cardiovascular: Yes: Regular Rate and Rhythm. No: Gallop, Murmur, Rub Respiratory: Yes: Regular, CTA Bilaterally. No: Rales, Rhonchi, Wheezes Gastrointestinal: Yes: Normal Bowel Sounds, Soft. No: Distention, Tenderness Extremities: Yes: WNL Edema: No Labs: CBC, BMP 06/08/19 06:10 06/08/19 06:10 Problem List - Problems (1) Diverticulitis of sigmoid colon Code(s): K57.32 - DVTRCLI OF LG INT W/O PERFORATION OR ABSCESS W/O BLEEDING (2) Hypokalemia Code(s): E87.6 - HYPOKALEMIA (3) Neutropenia Code(s): D70.9 - NEUTROPENIA, UNSPECIFIED Assessment/Plan (1) Diverticulitis of sigmoid colon Assessment/Plan: -much improved -crp decreasing -tolerating diet -however with neutropenia so switch to ertapenem -since only choice as an outpatient is augmentin, will finish course of ertapenem in hospital Code(s): K57.32 - DVTRCLI OF LG INT W/O PERFORATION OR ABSCESS W/O BLEEDING (2) Hypokalemia Assessment/Plan: -resolved Code(s): E87.6 - HYPOKALEMIA (3) Neutropenia -has chronic neutropenia but now worsening -case d/w ID and hematology -most likely secondary to zosyn -observe on ertapenam
[2019-06-08] MEDS: ZOLPIDEM TARTRATE 5 MG TABLET PO PRN (23:17)
[2019-06-08] MEDS: MAG HYDROX/AL HYDROX/SIMETH 30 ML UNIT-DOSE CUP PO PRN (23:27)
[2019-06-09 08:12] LABS: BLOOD UREA NITROGEN 10.4 mg/dL (7-18); CREATININE 0.8 mg/dL (0.55-1.3); MAGNESIUM 2.6 mg/dL (1.8-2.4); PHOSPHOROUS 3.9 mg/dL (2.5-4.9); POTASSIUM 4.3 mmol/L (3.5-5.1)
[2019-06-09 10:10] LABS: BASO % 0.6 % (0-2.0); EOS % 3.4 % (0-4.5); HEMATOCRIT 37.9 % (32.4-45.2); HEMOGLOBIN 13.1 GM/dL (10.7-15.3); LYMPH % 37.6 % (8-40); MCH 30.6 pg (25.7-33.7); MCHC 34.5 g/dl (32.0-36.0); MEAN CELL VOLUME 88.5 fl (80-96); MEAN PLT VOLUME 8.7 fl (7.5-11.1); MONO % 14.1 % (3.8-10.2); NEUT % 44.3 % (42.8-82.8); RBC 4.28 M/mm3 (3.60-5.2); RDW 12.6 % (11.6-15.6); WHITE BLOOD COUNT 2.9 K/mm3 (4.0-10.0)
[2019-06-09 10:34] LABS: PLATELET COUNT 209 K/MM3 (134-434)
[2019-06-09] MEDS ORDERED: PT OWN MED DRAWER 7, Y5N ONE (11:11)
[2019-06-09] MEDS: PANTOPRAZOLE 40 MG TABLET (FP) PO SCH (11:22)
[2019-06-09] MEDS: ERTAPENEM SODIUM 1 GM in SODIUM CHLORIDE 50 ML IVPB SCH (11:22)
--- NOTE | 2019-06-09 14:03 | PN ---
Progress Note (short form) - Note Progress Note: diet advanced still some loose stools no abdominal pain overall improved Vital Signs Period Temp Pulse Resp BP Sys/Jackson Pulse Ox Last 24 Hr 97.8 F-98.8 F 66-89 16-20 118-138/70-83 96-96 cor-rrr llungs clear abd soft,nt ext no edema CBC, BMP 06/09/19 07:00 06/09/19 07:00 Laboratory Tests 06/06/19 06/07/19 06/08/19 06:18 06:12 06:10 C-Reactive Protein 15.9 H 9.4 H 5.9 H 06/09/19 07:00 C-Reactive Protein 3.9 H a/p diverticulitis metronidazole allergy leukopenia improved d/w dr peraza yesterday continue ertpenem day #5 antibiotics diet being advanced f/u cbc, crp in am d/w patient at bedside d/w Dr Nunez Problem List - Problems (1) Diverticulitis Code(s): K57.92 - DVTRCLI OF INTEST, PART UNSP, W/O PERF OR ABSCESS W/O BLEED (2) Metronidazole adverse reaction Code(s): T37.8X5A - ADVERSE EFFECT OF SYSTEMIC ANTI-INFECT/PARASIT, INIT
[2019-06-09] MEDS ORDERED: SUCRALFATE 1 GM/10 ML UNIT DOSE CUPS PO PRN (14:20)
--- NOTE | 2019-06-09 14:20 | PN.GI ---
GI Progress Note Subjective: covering for Dr Wade mild epigastric pain, soft stool llq pain--resolved, took mylanta last night, on Pantoprazole - Objective Vital Signs: Vital Signs Temperature 97.8 F 06/09/19 13:29 Pulse Rate 89 06/09/19 13:29 Respiratory Rate 20 06/09/19 13:29 Blood Pressure 118/77 06/09/19 13:29 O2 Sat by Pulse Oximetry (%) 96 06/08/19 21:00 Constitutional: Well Nourished Eyes: Yes: Conjunctiva Clear HENT: Yes: Atraumatic Neck: Yes: Supple ...Palpate: Yes: Soft, Tenderness, Epigastium. No: Firm/Rigid, Guarding, Hepatomegaly, Mass, Pulsatile Mass Labs: CBC, BMP 06/09/19 07:00 06/09/19 07:00 Problem List - Problems (1) Dyspepsia Assessment/Plan: continue Pantoprzole D/c Mylanta sucralfate prn Code(s): R10.13 - EPIGASTRIC PAIN (2) Diverticulitis Assessment/Plan: WBC 2000 R> contiue antibiotics Code(s): K57.92 - DVTRCLI OF INTEST, PART UNSP, W/O PERF OR ABSCESS W/O BLEED
--- NOTE | 2019-06-09 15:43 | PN ---
Progress Note, Physician Chief Complaint: Mrs Jett is without complaint today. Says she feels good and denies cp, sob , n/v. - Current Medication List Current Medications: Active Medications Al Hydroxide/Mg Hydroxide (Mylanta Oral Suspension -) 30 ml PO Q4H PRN PRN Reason: INDIGESTION Last Admin: 06/08/19 23:27 Dose: 30 ml Ertapenem 1 gm/ Sodium (Chloride) 50 mls @ 100 mls/hr IVPB DAILY [facility] Last Admin: 06/09/19 11:22 Dose: 100 mls/hr Ondansetron HCl (Zofran Injection) 4 mg IVPUSH Q4H PRN PRN Reason: NAUSEA AND/OR VOMITING Last Admin: 06/04/19 17:51 Dose: 4 mg Pantoprazole Sodium (Protonix -) 40 mg PO DAILY [facility] Last Admin: 06/09/19 11:22 Dose: 40 mg Sucralfate (Carafate Oral Suspension -) 1 gm PO QID PRN PRN Reason: DYSPEPSIA Zolpidem Tartrate (Ambien -) 10 mg PO HS PRN PRN Reason: INSOMNIA Last Admin: 06/08/19 23:17 Dose: 10 mg - Objective Vital Signs: Vital Signs Temperature 36.6 C 06/09/19 13:29 Pulse Rate 89 06/09/19 13:29 Respiratory Rate 20 06/09/19 13:29 Blood Pressure 118/77 06/09/19 13:29 O2 Sat by Pulse Oximetry (%) 96 06/09/19 09:00 Constitutional: Yes: Well Nourished, No Distress, Calm Cardiovascular: Yes: Regular Rate and Rhythm. No: Gallop, Murmur, Rub Respiratory: Yes: Regular, CTA Bilaterally. No: Rales, Rhonchi, Wheezes Gastrointestinal: Yes: Normal Bowel Sounds, Soft. No: Distention, Tenderness Extremities: Yes: WNL Edema: No Labs: CBC, BMP 06/09/19 07:00 06/09/19 07:00 Problem List - Problems (1) Diverticulitis of sigmoid colon Code(s): K57.32 - DVTRCLI OF LG INT W/O PERFORATION OR ABSCESS W/O BLEEDING (2) Hypokalemia Code(s): E87.6 - HYPOKALEMIA (3) Neutropenia Code(s): D70.9 - NEUTROPENIA, UNSPECIFIED Assessment/Plan (1) Diverticulitis of sigmoid colon Assessment/Plan: -continues to improve -case d/w Dr Alejandre -continue ertapene, Code(s): K57.32 - DVTRCLI OF LG INT W/O PERFORATION OR ABSCESS W/O BLEEDING (2) Hypokalemia Assessment/Plan: -resolved Code(s): E87.6 - HYPOKALEMIA (3) Neutropenia -improving now that zosyn has been stopped -continue to monitor
--- NOTE | 2019-06-09 18:40 | PN ---
Progress Note, Physician History of Present Illness: Feels better. Still with some abdominal pain. - Current Medication List Current Medications: Active Medications Al Hydroxide/Mg Hydroxide (Mylanta Oral Suspension -) 30 ml PO Q4H PRN PRN Reason: INDIGESTION Last Admin: 06/08/19 23:27 Dose: 30 ml Ertapenem 1 gm/ Sodium (Chloride) 50 mls @ 100 mls/hr IVPB DAILY [facility] Last Admin: 06/09/19 11:22 Dose: 100 mls/hr Ondansetron HCl (Zofran Injection) 4 mg IVPUSH Q4H PRN PRN Reason: NAUSEA AND/OR VOMITING Last Admin: 06/04/19 17:51 Dose: 4 mg Pantoprazole Sodium (Protonix -) 40 mg PO DAILY [facility] Last Admin: 06/09/19 11:22 Dose: 40 mg Sucralfate (Carafate Oral Suspension -) 1 gm PO QID PRN PRN Reason: DYSPEPSIA Zolpidem Tartrate (Ambien -) 10 mg PO HS PRN PRN Reason: INSOMNIA Last Admin: 06/08/19 23:17 Dose: 10 mg - Objective Vital Signs: Vital Signs Temperature 97.8 F 06/09/19 13:29 Pulse Rate 89 06/09/19 13:29 Respiratory Rate 20 06/09/19 13:29 Blood Pressure 118/77 06/09/19 13:29 O2 Sat by Pulse Oximetry (%) 96 06/09/19 09:00 Constitutional: Yes: No Distress Eyes: Yes: Conjunctiva Clear Edema: No Labs: CBC, BMP 06/09/19 07:00 06/09/19 07:00 Assessment/Plan 58F admitted with diverticulitis. Started on Zosyn. Developed neutropenia (ANC normal on admission). Rest of CBC normal. Switched to ertapenem yesterday due to neutropenia, thought to be due to Zosyn. ANC 1300 today (improving). Afebrile Cont to monitor WBC.
[2019-06-09] MEDS: ZOLPIDEM TARTRATE 5 MG TABLET PO PRN (22:59)
[2019-06-09] MEDS: MAG HYDROX/AL HYDROX/SIMETH 30 ML UNIT-DOSE CUP PO PRN (22:59)
[2019-06-10 06:42] LABS: BASO % 0.5 % (0-2.0); HEMATOCRIT 37.2 % (32.4-45.2); MCH 30.6 pg (25.7-33.7); MCHC 34.8 g/dl (32.0-36.0); MEAN CELL VOLUME 87.7 fl (80-96); MEAN PLT VOLUME 8.5 fl (7.5-11.1); MONO % 14.2 % (3.8-10.2); NEUT % 50.3 % (42.8-82.8); PLATELET COUNT 198 K/MM3 (134-434); RBC 4.24 M/mm3 (3.60-5.2); RDW 12.5 % (11.6-15.6); WHITE BLOOD COUNT 3.3 K/mm3 (4.0-10.0)
[2019-06-10] MEDS: PANTOPRAZOLE 40 MG TABLET (FP) PO SCH (10:22)
[2019-06-10] MEDS: ERTAPENEM SODIUM 1 GM in SODIUM CHLORIDE 50 ML IVPB SCH (10:22)
--- NOTE | 2019-06-10 10:58 | PN ---
Progress Note (short form) - Note Progress Note: doing well formed stool, tolerating diet day #6 antibiotics labs reviewed painfree d/w patient and - ashutosh to complete 10 days antibiotics total with augmentin at home start tomorrow GI f/u as outpt hematology f/u as oupt d/w hospitalist Problem List - Problems (1) Diverticulitis Code(s): K57.92 - DVTRCLI OF INTEST, PART UNSP, W/O PERF OR ABSCESS W/O BLEED (2) Metronidazole adverse reaction Code(s): T37.8X5A - ADVERSE EFFECT OF SYSTEMIC ANTI-INFECT/PARASIT, INIT
--- NOTE | 2019-06-10 11:43 | DS ---
Physical Examination Vital Signs: Vital Signs Temperature 36.7 C 06/10/19 06:00 Pulse Rate 67 06/10/19 06:00 Respiratory Rate 18 06/10/19 06:00 Blood Pressure 122/63 06/10/19 06:00 O2 Sat by Pulse Oximetry (%) 95 06/09/19 21:00 Constitutional: Yes: Well Nourished, No Distress, Calm Cardiovascular: Yes: Regular Rate and Rhythm. No: Gallop, Murmur, Rub Respiratory: Yes: Regular, CTA Bilaterally. No: Rales, Rhonchi, Wheezes Gastrointestinal: Yes: Normal Bowel Sounds, Soft. No: Distention, Tenderness Extremities: Yes: WNL Edema: No Labs: CBC, BMP 06/10/19 05:30 06/09/19 07:00 Discharge Summary Reason For Visit: DIVERTICULITIS ABDOMINAL PAIN Current Active Problems Abdominal pain (Acute) Diverticulitis (Acute) Diverticulitis of sigmoid colon (Acute) Dyspepsia (Acute) Hiatal hernia with GERD (Acute) Hypokalemia (Acute) Knee joint replacement status (Acute) Metronidazole adverse reaction (Acute) Migraine (Acute) Neutropenia (Acute) S/p partial hysterectomy with remaining cervical stump (Acute) Hospital Course: (1) Diverticulitis of sigmoid colon Code(s): K57.32 - DVTRCLI OF LG INT W/O PERFORATION OR ABSCESS W/O BLEEDING (2) Hypokalemia Code(s): E87.6 - HYPOKALEMIA (3) Neutropenia Code(s): D70.9 - NEUTROPENIA, UNSPECIFIED Mrs. Jett is a very pleasant 58 year old female who comes in with diverticulitis. She was seen by ID, GI, and surgery. She did not need surgical intervention. She was started on zosyn and improved. Her diet was advanced without difficulty. She was doing well, however she developed neutropenia. This was secondary to the zosyn. This was transitioned to ertapenem and her neutropenia resolved. She is safe for discharge home and can finish her antibiotic course with augmentin. Condition: Good - Instructions Diet, Activity, Other Instructions: resume previous diet and activity Referrals: Veronika Wade MD [Staff Physician] - Addy Randolph MD [Staff Physician] - Disposition: HOME - Home Medications Comprehensive Discharge Medication List: Ambulatory Orders Zolpidem Tartrate [Ambien] 6.5 mg PO HS PRN 02/20/15 Butalb/Acetaminophen/Caffeine [Fioricet 50-300-40 mg Capsule] 1 each PO PRN PRN 05/05/15 Pantoprazole Sodium [Protonix -] 40 mg PO DAILY PRN 06/03/19 Polyethylene Glycol 3350 [Miralax 119 gm Btl -] 17 gm PO DAILY PRN 06/03/19 Sennosides/Docusate Sodium [Senokot-S Tablet] 1 each PO HS PRN 06/03/19
[2019-06-10 11:55] VITALS: BP 149/86; PULSE 74; TEMP 97.9
== END 2019-06-10 12:34 | disposition home or self-care (01) | DRG 392 ==
LOC: JER 12:30 → JERBED 15:13 → J7W 16:41
PROVIDERS: ADMIT Hospitalist; ATTEND Internal Medicine
DX: K57.32 Diverticulitis of large intestine without perforation or abscess without bleeding (principal); K21.9 Gastro-esophageal reflux disease without esophagitis; K29.60 Other gastritis without bleeding; D64.9 Anemia, unspecified; K59.09 Other constipation; G43.909 Migraine, unspecified, not intractable, without status migrainosus; E87.6 Hypokalemia; R10.13 Epigastric pain; D70.2 Other drug-induced agranulocytosis; T36.0X5A Adverse effect of penicillins, initial encounter
CPT/HCPCS: 36415; 80048; 80053; 81003; 82962; 83735; 84100; 85025; 86140; 87040; 87045; 87046; 87205; 87324; 87449; 93005; 93010; 94010; 99283-25; J0131; J7030

== ENCOUNTER 2019-09-07 08:42 | Day surgery (SDC) | payer OTHER ==
[2019-09-06 14:06] VITALS: BMI 33.1
[2019-09-07 09:52] VITALS: TEMP 98.2
[2019-09-07 11:41] VITALS: BP 131/74; PULSE 64
--- NOTE | 2019-09-10 17:12 | PATH ---
Surgical Pathology Report Patient Name: ABRAHAM GARCÍA [facility]. Rec. #: [id number] /Age/Gender: 1960 (Age: 58) / F Account: [id number] Location: U-ENDOSCOPY Taken: 09/07/2019 Received: 09/07/2019 Reported: 09/10/2019 Physicians: Veronika Wade M.D. Specimen(s) Received A: SECOND PORTION DUODENUM & DUODENAL BULB B: ANTRUM C: MID AND DISTAL ESOPHAGUS Clinical History Epigastric pain Postoperative diagnosis: Hiatal hernia, GERD, gastritis Final Diagnosis A. DUODENUM, SECOND PORTION AND DUODENAL BULB, BIOPSY: DUODENAL MUCOSA WITHOUT SIGNIFICANT PATHOLOGIC FINDINGS. B. STOMACH, ANTRUM, BIOPSY: GASTRIC ANTRAL MUCOSA WITH MILD CHRONIC GASTRITIS. IMMUNOHISTOCHEMICAL STAIN FOR H. PYLORI IS NEGATIVE. C. MID AND DISTAL ESOPHAGUS, BIOPSY: SQUAMOUS MUCOSA WITH CHANGES OF MILD REFLUX TYPE ESOPHAGITIS. Electronically Signed Joceline Maciel M.D. Gross Description A. Received in formalin, labeled "second portion duodenum and duodenal bulb" are 4 [place], irregular portions of soft tissue ranging in size from 0.1-0.5 cm. in greatest dimension. The specimens are submitted in toto in one cassette. B. Received in formalin, labeled "antrum" are 4 [place], irregular portions of soft tissue ranging in size from 0.2-0.7 cm. in greatest dimension. The specimens are submitted in toto in one cassette. C. Received in formalin, labeled "mid and distal esophagus" are 3 [place], irregular portions of soft tissue measuring 0.2 and 0.3 cm. in greatest dimension. The specimens are submitted in toto in one cassette. MLSZ/09/07/2019 sanml/09/07/2019
== END 2019-09-07 11:57 | disposition home or self-care (01) ==
LOC: JASU-ENDO 08:42
PROVIDERS: ATTEND Internal Medicine Gastroenterology
PROC: 0DB68ZX Excision of Stomach, Via Natural or Artificial Opening Endoscopic, Diagnostic (ICD-10-PCS; 2019-09-07)
PROC: 0DB28ZX Excision of Middle Esophagus, Via Natural or Artificial Opening Endoscopic, Diagnostic (ICD-10-PCS; 2019-09-07)
PROC: 0DB38ZX Excision of Lower Esophagus, Via Natural or Artificial Opening Endoscopic, Diagnostic (ICD-10-PCS; 2019-09-07)
PROC: 0DB98ZX Excision of Duodenum, Via Natural or Artificial Opening Endoscopic, Diagnostic (ICD-10-PCS; principal; 2019-09-07 09:00)
DX: K29.50 Unspecified chronic gastritis without bleeding (principal); K21.0 Gastro-esophageal reflux disease with esophagitis; K44.9 Diaphragmatic hernia without obstruction or gangrene; R10.13 Epigastric pain
CPT/HCPCS: 88305-TC; 88342-TC

== ENCOUNTER 2019-11-03 17:50 | Emergency (ER) | payer OTHER ==
[2019-11-03 18:05] VITALS: BP 140/67; PULSE 61; TEMP 97.8; BMI 33.1
[2019-11-03 18:23] LABS: BASO % 0.6 % (0-2.0); EOS % 2.1 % (0-4.5); HEMATOCRIT 41.3 % (32.4-45.2); LYMPH % 36.2 % (8-40); MCH 30.4 pg (25.7-33.7); MCHC 33.9 g/dl (32.0-36.0); MEAN CELL VOLUME 89.6 fl (80-96); MEAN PLT VOLUME 8.9 fl (7.5-11.1); MONO % 8.8 % (3.8-10.2); NEUT % 52.3 % (42.8-82.8); PLATELET COUNT 186 K/MM3 (134-434); RBC 4.61 M/mm3 (3.60-5.2); RDW 12.2 % (11.6-15.6); WHITE BLOOD COUNT 4.5 K/mm3 (4.0-10.8)
--- NOTE | 2019-11-03 18:36 | PDOC ---
Documentation entered by Joceline Mojica SCRIBE, acting as scribe for Paul Woodruff MD. Paul Woodruff MD: This documentation has been prepared by the Yunior farooq Maria, SCRIBE, under my direction and personally reviewed by me in its entirety. I confirm that the documentation accurately reflects all work, treatment, procedures, and medical decision making performed by me. History of Present Illness - General Chief Complaint: Headache Stated Complaint: HEADACHE AND FACIAL QUIVERING Time Seen by Provider: 11/03/19 17:52 History Source: Patient Exam Limitations: No Limitations - History of Present Illness Initial Comments: 11/03/19 18:31 The patient is a 58-year-old female with a past history of anemia, GERD, gastritis, chronic constipation, and hemorrhoids, who presents to the ED with 1 day of headaches, left eye and lip twitching and facial weakness. Patient states her symptoms began with a twitch like sensation in her eye and lip when she was getting ready to go out followed by a muscle like ache in her neck and a profuse headache on the left side of her head. Patient states she tried and was unable to blow out on the left side of her pursed lips. Patient also states that on her way to the ER her left eye started to tear and notes that her weakness seamed to worsen. Patient denies having diabetes or high blood pressure. Patient denies any exposure to the outdoors or any known lyme disease. She denies any numbness, loss of strength or tingling, double or blurry vision. She denies recent fevers, chills, or dizziness. She denies recent nausea, vomiting, diarrhea or constipation. She denies recent dysuria, frequency, urgency or hematuria. She denies recent chest pain or shortness of breath. Allergies: Metronidazole Past surgical history: None reported. Past History - Past Medical History Allergies/Adverse Reactions: Allergies Allergy/AdvReac Type Severity Reaction Status Date / Time metronidazole [From Flagyl] Allergy Verified 11/03/19 19:02 Home Medications: Ambulatory Orders Butalb/Acetaminophen/Caffeine [Fioricet 50-300-40 mg Capsule] 1 each PO PRN PRN 05/05/15 Esomeprazole Magnesium [Nexium 24Hr] 40 mg PO DAILY #1 tablet. 09/07/19 Anemia: Yes (GERD RELATED) Asthma: Yes (GERD RELATED) COPD: No GI Disorders: Yes (HH,LARYNGEAL REFLUX DISEASE, GASTRITIS, FUNDIC POLYPS, HEMMORRHOIDS) Other medical history: DIVERTICULITIS - Surgical History Abdominal Surgery: Yes - Immunization History Immunization Up to Date: Yes - Psycho Social/Smoking Cessation Hx Smoking History: Never smoked Have you smoked in the past 12 months: No Information on smoking cessation initiated: No Hx Alcohol Use: Yes (wine at night) Drug/Substance Use Hx: No Substance Use Type: None Hx Substance Use Treatment: No Review of Systems - Review of Systems Able to Perform ROS?: Yes Comments:: 11/03/19 18:31 Constitutional - Pt denies Fever, Chills, weakness, HEENT: denies vision changes, sore throat Respiratory: Denies cough, sob, hemoptysis Cardiac: denies chest pain, palpitations, light headedness, leg swelling Abd/GI: denies abd pain, nausea, vomiting, blood per rectum, melena, diarrhea : denies dysuria, frequency, discharge Musculskelatal - + neck pain. denies back pain, joint swelling skin - denies bruising, erythema, rash neurological: + headache. +twitching in left eye. Denies numbness, focal weakness, tingling, ataxia, weakness hematologic: denies anemia, easy bruising, easy bleeding *Physical Exam - Vital Signs Last Vital Signs Temp Pulse Resp BP Pulse Ox 97.8 F 61 16 140/67 97 11/03/19 17:52 11/03/19 17:52 11/03/19 17:52 11/03/19 17:52 11/03/19 17:52 - Physical Exam 11/03/19 18:29 GENERAL: The patient is awake, alert, and fully oriented, Nontoxic - in no acute distress. HEAD: Normocephalic, atraumatic. EYES: extraocular movements intact, sclera anicteric, conjunctiva clear. vision intact by confrontation ENT: Normal voice, Moist mucous membranes, Tympanic membrane symmetric without signs of vesicles NECK: Normal range of motion, supple LUNGS: Breath sounds equal, clear to auscultation bilaterally. No wheezes, no rhonchi, no rales. HEART: Regular rate and rhythm, normal S1 and S2 without murmur, rub or gallop. ABDOMEN: Soft, nontender, No guarding, no rebound. No CVA tenderness EXTREMITIES: Normal range of motion, no edema. PSYCH: Normal mood, normal affect. SKIN: Warm, Dry, normal turgor, NEURO: Mental status: The patient is oriented x3. Cranial nerves: Slightly flattened nasolabial fold at rest, +weakness of facial nerve with assymetric smile and eye closing (still able to tightly close her eyes), and slight weakness with forehead lift Motor: The upper extremities are 5 over 5 in all muscle groups. The lower extremities are 5 over 5 in all muscle groups. Negative pronator drift Sensation: Sensation is intact to light touch throughout. romberg negative Cerebellar: Rutqio-[id number]-mnrn is normal in both upper extremities. Heel-knee- marcelino is normal in both lower extremities. rapid alternating movements are normal. Reflexes: 2+ and symmetric in the upper and lower extremities. Gait: Normal. Heart Score/ECG Review - ECG Impressions Comment:: 11/03/19 18:31 Twelve-lead EKG was performed and reviewed by me. There is normal sinus rhythm with a Rate of 57 The axis is normal. The intervals are normal. There is normal R wave progression There are no ST or T wave abnormalities. Impression: Sinus bradycardia ED Treatment Course - LABORATORY CBC & Chemistry Diagram: 11/03/19 18:10 11/03/19 18:10 - RADIOLOGY Radiology Studies Ordered: Category Date Time Status HEAD CT WITHOUT CONTRAST [CT] Stat CT Scan 11/03/19 17:57 Ordered Medical Decision Making - Medical Decision Making 11/03/19 18:15 58-year-old female history of migraines, GERD, gastritis presenting with Complaint of left-sided facial droop - Initially patient described sensation of twitching in her eye yesterday, Today noticed mild gradual onset of left facial weakness. Patient also endorses a mild left-sided headache. Patient denies any other symptoms including recent URI, fevers, nausea, vomiting, focal extremity weakness, palpitations. Patient's noted that the patient's weakness seemed to get worse even over the past hour when they were coming to the ED. On exam the patient did have mild Left facial weakness, with involvement of L forehead ddx - cva vs bells palsy suspect bells due to assymetric forehead movement and with onset of synkinesis like twitching yesterday We will check basic labs, Lyme's, CT head Will obtain EKG to screen for arrhythmia 11/03/19 18:50 ct appears negative for acute changes on my wet read. awaiting rad read 11/03/19 18:57 ct negative on formal read. 11/03/19 19:14 labs unremarkable will dc with neuro fu retun precautions were discussed I discussed the physical exam findings, ancillary test results and final diagnoses with the patient. I answered all of the patient's questions. The patient was satisfied with the care received and felt comfortable with the discharge plan and treatment plan. The patient will call their primary care physician within 24 hours to arrange follow-up and will return to the Emergency Department with any new, persistent or worsening symptoms. Discharge - Discharge Information Problems reviewed: Yes Clinical Impression/Diagnosis: Mehta's palsy Condition: Stable Disposition: HOME - Admission No - Follow up/Referral Referrals: Nikita Jett MD [Primary Care Provider] - Nikita Sharma MD [Staff Physician] - - Patient Discharge Instructions Patient Printed Discharge Instructions: DI for Mehta's Palsy Additional Instructions: Take your prednisone and valtrex. Keep your eyes closed when sleeping (use tape to keep them closed when you sleep ) to prevent dry eyes and injury. Use artificial tears to moisturize your eyes when necessary. Follow up with neurology for further management. Print Language: SAUDI ARABIAN - Post Discharge Activity
[2019-11-03 18:47] LABS: ALBUMIN 4.2 g/dl (3.4-5.0); BILIRUBIN,TOTAL 0.5 mg/dl (0.2-1); CALCIUM 8.7 mg/dl (8.5-10); CREATININE 0.6 mg/dl (0.55-1.3); POTASSIUM 3.8 mmol/L (3.5-5.1)
--- NOTE | 2019-11-05 01:09 | EKG ---
Test Reason : Blood Pressure : / mmHG Vent. Rate : 057 BPM Atrial Rate : 057 BPM P-R Int : 164 ms QRS Dur : 086 ms QT Int : 442 ms P-R-T Axes : 045 056 043 degrees QTc Int : 430 ms SINUS BRADYCARDIA POSSIBLE LEFT ATRIAL ENLARGEMENT BORDERLINE ECG WHEN COMPARED WITH ECG OF 04-JUN-2019 14:17, NO SIGNIFICANT CHANGE WAS FOUND Confirmed by ANGELITO GOTTLIEB MD ([id number]) on 11/05/2019 1:09:08 AM Referred By: MARCIE Confirmed By:ANGELITO GOTTLIEB MD
== END 2019-11-03 19:22 | disposition home or self-care (01) ==
LOC: FER 17:50
DX: G51.0 Bell's palsy (principal); Z88.8 Allergy status to other drugs, medicaments and biological substances; K21.9 Gastro-esophageal reflux disease without esophagitis; K29.70 Gastritis, unspecified, without bleeding; J45.909 Unspecified asthma, uncomplicated; K57.92 Diverticulitis of intestine, part unspecified, without perforation or abscess without bleeding
CPT/HCPCS: 36415; 70450-TC; 80053; 85025; 86618; 93005; 99282-25

== ENCOUNTER 2024-05-09 04:24 | Day surgery (SDC) | payer OTHER ==
[2024-05-03 13:46] VITALS: BMI 35.0
[2024-05-09 12:15] VITALS: BP 139/93; PULSE 66; RESP 18; TEMP 98
== END 2024-05-09 10:20 | disposition home or self-care (01) ==
LOC: JASU-ENDO 04:24
PROVIDERS: ATTEND Internal Medicine Gastroenterology
PROC: 0DB78ZX Excision of Stomach, Pylorus, Via Natural or Artificial Opening Endoscopic, Diagnostic (ICD-10-PCS; 2024-05-09)
PROC: 0DB68ZX Excision of Stomach, Via Natural or Artificial Opening Endoscopic, Diagnostic (ICD-10-PCS; 2024-05-09)
PROC: 0DB48ZX Excision of Esophagogastric Junction, Via Natural or Artificial Opening Endoscopic, Diagnostic (ICD-10-PCS; 2024-05-09)
PROC: 0DJD8ZZ Inspection of Lower Intestinal Tract, Via Natural or Artificial Opening Endoscopic (ICD-10-PCS; 2024-05-09)
PROC: 0DB98ZX Excision of Duodenum, Via Natural or Artificial Opening Endoscopic, Diagnostic (ICD-10-PCS; principal; 2024-05-09 09:00)
DX: Z12.11 Encounter for screening for malignant neoplasm of colon (principal); K57.30 Diverticulosis of large intestine without perforation or abscess without bleeding; K29.50 Unspecified chronic gastritis without bleeding; K21.00 Gastro-esophageal reflux disease with esophagitis, without bleeding
CPT/HCPCS: 43239; G0121; 88305-TC; 88342-TC